=== PATIENT | female | born 1995 | race Two or more races ===

== ENCOUNTER 2017-03-25 21:01 | Emergency (ER) | payer SELFPAY ==
[~2017-03-25] VITALS: Ht 162.6 cm; Wt 140.6 kg
[~2017-03-25 21:01] MED LIST: DOXY100C2 PO; OXYC-323 PO
[2017-03-25 21:37] VITALS: BP 158/74
[2017-03-25] MEDS ORDERED: HYDR-971 PO (23:50)
[2017-03-25] MEDS ORDERED: IBUP-1060 PO (23:50)
--- NOTE | 2017-03-25 23:50 | PHYS DOC ---
Past Medical History Past Medical History: Asthma, Migraines, Ovarian Cyst Past Surgical History: Appendectomy, Oophorectomy, Tonsillectomy Additional Past Surgical Histo: ovarian cyst Alcohol Use: Occasionally Drug Use: None Adult General Chief Complaint Chief Complaint: PELVIC PAIN HPI HPI Patient is a 21 year old female complaining of right-sided pelvic pain which she's had for several hours today. 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 She has had it this bad before but it's been a while. The last time she had pain this bad before, one and half years ago, she had a ruptured ovarian cyst and she had to have her left ovary removed. LMP 2 weeks ago. Before that it is been 6 or 8 months. She does not have regular periods. Patient does not have a [facility] doctor. She denies recent vaginal discharge or bleeding. Review of Systems Review of Systems Constitutional: Denies fever or chills [] GI: Denies abdominal pain, nausea, vomiting, bloody stools or diarrhea [] : Denies dysuria or hematuria [] Musculoskeletal: Denies back pain or joint pain [] Allergies Allergies Allergies Coded Allergies Type Severity Reaction Last Updated Verified No Known Drug Allergies 08/05/15 No Physical Exam Physical Exam Constitutional: Well developed, well nourished, morbidly obese, no acute distress, non-toxic appearance. [] HENT: Normocephalic, atraumatic, bilateral external ears normal, nose normal. [] Eyes: conjunctiva normal, no discharge. [] Neck: Normal range of motion, no stridor. [] Abdomen: Obese, nondistended, abdomen is nontender to palpation except for in the very low right abdomen near the right inguinal crease, no masses, no pulsatile masses. Pelvic exam: External genitalia normal. Vaginal exam normal. Cervix normal in appearance, no cervicitis. Bimanual exam: No cervical motion tenderness. Uterus not enlarged or tender. No left adnexal tenderness or masses. Right adnexa moderately tender to palpation, no mass palpable. Skin: Warm, dry, no erythema, no rash. [] Extremities: No tenderness, no cyanosis, no clubbing, ROM intact, no edema. [] Neurologic: Alert and oriented X 3, normal motor function, normal sensory function, no focal deficits noted. [] Current Patient Data Vital Signs Vital Signs Date Time Temp Pulse Resp B/P (MAP) Pulse Ox O2 Delivery O2 Flow Rate FiO2 03/25/17 21:37 98.2 85 16 158/74 (102) 96 Room Air 98.2 Lab Values Laboratory Tests Test 03/25/17 20:23 POC Urine HCG, Qualitative Hcg negative (Negative) EKG EKG [] Radiology/Procedures Radiology/Procedures [] Course & Med Decision Making Course & Med Decision Making Pertinent Labs and Imaging studies reviewed. (See chart for details) 21-year-old female with a history of left to for ectomy secondary to ruptured cyst in the past, presents with severe pain in the right adnexa which reminds her of that same pain. Urine test is negative. Pelvic exam is unremarkable except for some pain and tenderness in the right adnexa. I discussed with the patient we will get a pelvic ultrasound to evaluate her right ovary and she is agreeable to that plan. Patient was offered pain medication prior to ultrasound but she declined. Pelvic ultrasound done, does show blood flow to the right ovary, she does have a moderately sized right ovarian cyst but she does have good blood flow and no free fluid. Patient was reassured, prescription for ibuprofen 800 mg and [place] for a day or 2 if needed, referral to [facility] given. [] Dragon Disclaimer Dragon Disclaimer This electronic medical record was generated, in whole or in part, using a voice recognition dictation system. Departure Departure Impression: Primary Impression: Pelvic pain Disposition: 01 HOME, SELF-CARE Condition: STABLE Referrals: NO PCP (PCP) ELIANA VIRAMONTES Jr, MD Patient Instructions: Ovarian Cyst, [id number] Additional Instructions: Today in the ER, the ultrasound did show a cyst on your right ovary that does not appear to be causing any problems at this time. There is good blood flow to your right ovary. We are not sure what is causing your pain, ovarian cyst can be painful, but there is no evidence of a serious cause for the pain tonight. Take ibuprofen 800 mg every 8 hours around the clock for the next 2 or 3 days for pain. If your pain is not improving, make an appointment with [facility] doctor for more evaluation. [place], hydrocodone, for more severe pain area and you may take this along with my it is safe to combine. Do not take while driving, it may be sedating. Scripts Hydrocodone/Apap 5-325 (NORCO 5-325 TABLET) 1 Each Tablet 1-2 TAB PO Q4-6HRS, #12 TAB Prov: KEILA LAUREN MD 03/25/17 Ibuprofen (IBUPROFEN) 800 Mg Tablet 800 MG PO PRN Q6HRS Y for INFLAMMATION for 7 Days, #20 TAB Prov: KEILA LAUREN MD 03/25/17 KEILA LAUREN MD March 25, 2017 23:50
--- NOTE | 2017-03-26 00:03 | RAD ---
PROCEDURE Complete pelvic ultrasound. HISTORY Right pelvic pain. TECHNIQUE Real-time ultrasound imaging of the pelvis using transabdominal transvaginal windows performed here. COMPARISON Pelvic ultrasound August 04, 2015. FINDINGS The left ovary surgically absent. Right ovary is only visualized transvaginally. Uterus measures 6.3 x 4 x 3.4 cm. No focal abnormality. Incidental nabothian cysts. The endometrial stripe is normal measuring 9 millimeters. The right ovary measures 3.2 x 2.2 x 2.1 cm. Normal blood flow. There is a right ovary functional cyst measuring up to 2.3 cm. Right ovary is not well seen. No pelvic free fluid is identified. IMPRESSION 1. Normal blood flow in the right ovary. Small right ovary functional cyst. 2. Left ovary surgically absent. 3. Nabothian cysts. Electronically signed by: Jefferson Leary MD (March 26, 2017 00:00:24)
== END 2017-03-25 23:58 | disposition home or self-care (01) ==
LOC: ER 21:32
DX: R10.2 Pelvic and perineal pain (principal); J45.909 Unspecified asthma, uncomplicated; G43.909 Migraine, unspecified, not intractable, without status migrainosus; Z90.49 Acquired absence of other specified parts of digestive tract; Z90.722 Acquired absence of ovaries, bilateral
CPT/HCPCS: 76830; 76856; 81025; 84703; 99284-25

== ENCOUNTER 2019-11-22 03:05 | Emergency (ER) | payer OTHER ==
[~2019-11-22] VITALS: Ht 162.6 cm; Wt 117.9 kg
[~2019-11-22 03:05] MED LIST changes: +HYDR-3164 PO; +IBUP-1060 PO; -OXYC-323 PO; +OXYC1TAB15 PO
[2019-11-22 03:25] VITALS: BP 144/81
[2019-11-22 05:00] LABS: U PREG PATIENT POSITIVE (NEG)
--- NOTE | 2019-11-22 05:13 | PHYS DOC ---
Past Medical History Past Medical History: Asthma Past Surgical History: Appendectomy, Tonsillectomy Additional Past Surgical Histo: ovarian cyst Alcohol Use: Occasionally Drug Use: None Adult General Chief Complaint Chief Complaint: UPPER EXTREMITY PAIN HPI HPI Patient is a 24 year old female who came here from work for evaluation of left arm pain for the last 3 days. Patient denies any chest pain, no trouble breathing. She denies any injury. 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 Described the pain at aching, worse with muscle movement. She denies any history of high blood pressure, no history of diabetes, no history of blood clot disorder. Review of Systems Review of Systems Constitutional: Denies fever or chills [] Eyes: Denies change in visual acuity, redness, or eye pain [] HENT: Denies nasal congestion or sore throat [] Respiratory: Denies cough or shortness of breath [] Cardiovascular: No additional information not addressed in HPI [] GI: Denies abdominal pain, nausea, vomiting, bloody stools or diarrhea [] : Denies dysuria or hematuria [] Musculoskeletal: Denies back pain or joint pain [] Integument: Denies rash or skin lesions [] Neurologic: Denies headache, focal weakness or sensory changes [] Endocrine: Denies polyuria or polydipsia [] All other systems were reviewed and found to be within normal limits, except as documented in this note. Allergies Allergies Allergies Coded Allergies Type Severity Reaction Last Updated Verified No Known Drug Allergies 08/05/15 No Physical Exam Physical Exam Constitutional: Well developed, well nourished, no acute distress, non-toxic appearance. [] HENT: Normocephalic, atraumatic, bilateral external ears normal, oropharynx moist, no oral exudates, nose normal. [] Eyes: PERRLA, EOMI, conjunctiva normal, no discharge. [] Neck: Normal range of motion, no tenderness, supple, no stridor. [] Cardiovascular:Heart rate regular rhythm, no murmur [] Lungs & Thorax: Bilateral breath sounds clear to auscultation [] Abdomen: Bowel sounds normal, soft, no tenderness, no masses, no pulsatile masses. [] Skin: Warm, dry, no erythema, no rash. [] Back: No tenderness, no CVA tenderness. [] Extremities: No tenderness, no cyanosis, no clubbing, ROM intact, no edema. [] Neurologic: Alert and oriented X 3, normal motor function, normal sensory function, no focal deficits noted. [] Psychologic: Affect normal, judgement normal, mood normal. [] Current Patient Data Vital Signs Vital Signs Date Time Temp Pulse Resp B/P (MAP) Pulse Ox O2 Delivery O2 Flow Rate FiO2 11/22/19 03:25 98.6 75 16 144/81 (102) 100 Room Air 98.6 Lab Values Laboratory Tests Test 11/22/19 04:39 11/22/19 04:45 POC Urine HCG, Qualitative Hcg positive (Negative) Urine Test Positive (NEG) EKG EKG ekg was done, showed normal sinus rhythm, no STEMI.[] Radiology/Procedures Radiology/Procedures [] Course & Med Decision Making Course & Med Decision Making Pertinent Labs and Imaging studies reviewed. (See chart for details) Patient was found to be incidentally. No pelvic pain, no nausea or vomiting, no abdominal pain, no Vaginal bleeding. She will need to follow up with [facility]. Dragon Disclaimer Dragon Disclaimer This electronic medical record was generated, in whole or in part, using a voice recognition dictation system. Departure Departure Impression: Primary Impression: Arm pain, musculoskeletal Additional Impression: Disposition: HOME, SELF-CARE Condition: STABLE Referrals: NO PCP (PCP) ELIANA VIRAMONTES Jr, MD please call this [facility] Patient Instructions: ABCs of , Musculoskeletal Pain Problem Qualifiers ROSALBA MORENO DO Nov 22, 2019 05:13
--- NOTE | 2019-11-22 13:54 | EKG ---
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
== END 2019-11-22 05:15 | disposition home or self-care (01) ==
LOC: ER 03:05
DX: M79.602 Pain in left arm (principal); Z33.1 Pregnant state, incidental; J45.909 Unspecified asthma, uncomplicated
CPT/HCPCS: 81025; 93005; 99285

== ENCOUNTER → 2019-11-28 | Outpatient (CLI) | payer OTHER ==
[2019-11-22 03:25] VITALS: BP 144/81
[2019-11-28 12:38] LABS: BASO % 0 % (0-3); EOS # 0.1 x10^3/uL (0.0-0.7); EOS % 1 % (0-3); HEMATOCRIT 36.1 % (36.0-47.0); HEMOGLOBIN 11.6 g/dL (12.0-15.5); LYMPH # 1.6 x10^3/uL (1.0-4.8); LYMPH % 17 % (24-48); MEAN CORPUSCULAR HEMOGLOBIN 22 pg (25-35); MEAN CORPUSCULAR HGB CONC 32 g/dL (31-37); MEAN CORPUSCULAR VOLUME 67 fL (79-100); MONO # 0.6 x10^3/uL (0.0-1.1); MONO % 6 % (0-9); NEUT # 7.4 x10^3/uL (1.8-7.7); NEUT % 76 % (31-73); PLATELET COUNT 341 x10^3/uL (140-400); RED BLOOD COUNT 5.36 x10^6/uL (3.50-5.40); RED CELL DISTRIBUTION WIDTH 17.7 % (11.5-14.5); WHITE BLOOD COUNT 9.7 x10^3/uL (4.0-11.0)
[2019-11-28 13:03] LABS: ANISOCYTOSIS SLIGHT; MICROCYTOSIS PRESENT; PLT ESTIMATE ADEQUATE (ADEQUATE)
== END | disposition home or self-care (01) ==
LOC: LAB 11:53
PROVIDERS: ATTEND Obstetrics & Gynecology
DX: Z32.01 Encounter for pregnancy test, result positive (principal)
CPT/HCPCS: 36415; 81220; 85025; 86592; 86703; 86762; 86850; 86900; 86901; 87340

== ENCOUNTER 2019-12-26 00:01 | Emergency (ER) | payer OTHER ==
[~2019-12-26] VITALS: Ht 162.6 cm; Wt 117.0 kg
--- NOTE | 2019-12-26 00:23 | PHYS DOC ---
Past Medical History Past Medical History: Asthma Past Surgical History: Appendectomy, Tonsillectomy Additional Past Surgical Histo: ovarian cyst Smoking Status: Never Smoker Alcohol Use: Occasionally Drug Use: None Attending Signature I have participated in the care of this patient and I have reviewed and agree with all pertinent clinical information above including history, exam, and recommendations. Adult General Chief Complaint Chief Complaint: ABDOMINAL PAIN IN HPI HPI 24 yo female presents emergency Department with complaints of groin pain. Patient describes pain over the last couple days worsening today. She states she works at [employer] does some heavy lifting. She describes the pain as a stabbing sensation. Better with rest usually however was persistent today. She denies any vaginal discharge or bleeding. She is approximately 11 weeks. She follows with Dr. Camilo. She was concerned and wanted to make sure there was nothing wrong with the baby. Patient has tried no over the counter medications. Review of Systems Review of Systems Constitutional: Denies fever or chills [] Respiratory: Denies cough or shortness of breath [] Cardiovascular: No additional information not addressed in HPI [] GI: Denies abdominal pain, nausea, vomiting, bloody stools or diarrhea, right groin pain [] : Denies dysuria or hematuria [] Musculoskeletal: Denies back pain or joint pain [] Integument: Denies rash or skin lesions [] Neurologic: Denies headache, focal weakness or sensory changes [] All other systems were reviewed and found to be within normal limits, except as documented in this note. Current Medications Current Medications Current Medications Medications (Trade) Dose Ordered Sig/[facility] Start Time Stop Time Status Last Admin Dose Admin Cyclobenzaprine HCl (Flexeril) 10 mg 1X ONCE 12/26/19 01:30 12/26/19 01:31 DC 12/26/19 01:26 10 MG Allergies Allergies Allergies Coded Allergies Type Severity Reaction Last Updated Verified No Known Drug Allergies 08/05/15 No Physical Exam Physical Exam Constitutional: Well developed, well nourished, no acute distress, non-toxic appearance. [] Cardiovascular:Heart rate regular rhythm, no murmur [] Lungs & Thorax: Bilateral breath sounds clear to auscultation [] Abdomen: Bowel sounds normal, soft, no tenderness, no masses, no pulsatile masses. [] Skin: Warm, dry, no erythema, no rash. [] Back: No tenderness, no CVA tenderness. [] Extremities: No tenderness,no edema. [] Neurologic: Alert and oriented X 3, no focal deficits noted. [] Psychologic: Affect normal, judgement normal, mood normal. [] Current Patient Data Vital Signs Vital Signs Date Time Temp Pulse Resp B/P (MAP) Pulse Ox O2 Delivery O2 Flow Rate FiO2 12/26/19 01:33 70 20 127/66 (86) 100 Room Air 12/26/19 00:08 98.9 98.9 Lab Values Laboratory Tests Test 12/26/19 00:10 Urine Collection Type Unknown Urine Color Yellow Urine Clarity Clear Urine pH 6.0 Urine Specific [place] >=1.030 Urine Protein 30 mg/dL (NEG-TRACE) Urine Glucose (UA) Negative mg/dL (NEG) Urine Ketones (Stick) Negative mg/dL (NEG) Urine Blood Negative (NEG) Urine Nitrite Negative (NEG) Urine Bilirubin Negative (NEG) Urine Urobilinogen Dipstick 0.2 mg/dL (0.2 mg/dL) Urine Leukocyte Esterase Trace (NEG) Urine RBC Rare /HPF (0-2) Urine WBC 11-20 /HPF (0-4) Urine Squamous Epithelial Cells Many /LPF Urine Bacteria Moderate /HPF (0-FEW) Urine Mucus Marked /LPF EKG EKG [] Radiology/Procedures Radiology/Procedures [] Course & Med Decision Making Course & Med Decision Making Pertinent Labs and Imaging studies reviewed. (See chart for details) []24 yo female presents emergency Department with complaints of groin pain. Patient describes pain over the last couple days worsening today. She states she works at [employer] does some heavy lifting. She describes the pain as a stabbing sensation. Better with rest usually however was persistent today. She denies any vaginal discharge or bleeding. She is approximately 11 weeks. She follows with Dr. Camilo. She was concerned and wanted to make sure there was nothing wrong with the baby. Patient has tried no over the counter medications. UAD without UTI US reviewed - 11week , + FHTs Tylenol and flexeril recommended Rx provided for flexeril category B in Recommend follow up with PCP/primary OB in 3 - 5 days [place] Disclaimer Dragon Disclaimer This electronic medical record was generated, in whole or in part, using a voice recognition dictation system. Departure Departure Impression: Primary Impression: Groin pain Disposition: 01 HOME, SELF-CARE Condition: STABLE Referrals: NO PCP (PCP) Patient Instructions: Groin Strain Additional Instructions: Recommend follow up with PCP 3 - 5 days Return to the ER with worsening symptoms, intractable pain, fever, altered mental status Tylenol as needed for pain US with + FHTs Urine without evidence of acute infection on exam Flexeril rx provided for muscle spasm Scripts Cyclobenzaprine Hcl (CYCLOBENZAPRINE HCL) 10 Mg Tablet 1 TAB PO TID PRN for MUSCLE SPASMS, #21 TAB Prov: JERRICA STONE MD 12/26/19 Problem Qualifiers Primary Impression: Groin pain Laterality: right Qualified Codes: R10.31 - Right lower quadrant pain JERRICA STONE MD Dec 26, 2019 00:23
[2019-12-26 00:25] LABS: BILIRUBIN,URINE NEGATIVE (NEG); CLARITY,URINE CLEAR; COLOR,URINE YELLOW; NITRITE,URINE NEGATIVE (NEG); PROTEIN,URINE 30 mg/dL (NEG-TRACE); UROBILINOGEN,URINE 0.2 mg/dL (0.2 mg/dL)
[2019-12-26 00:31] LABS: SQUAMOUS EPITHELIAL CELL,UR MANY /LPF
[2019-12-26 00:32] LABS: BACTERIA,URINE MODERATE /HPF (0-FEW); RBC,URINE RARE /HPF (0-2)
[2019-12-26] MEDS ORDERED: CYCL10TA2 PO (01:29)
[2019-12-26] MEDS ORDERED: CYCLOBENZAPRINE 10 MG TABLET. PO ONE (01:30)
[2019-12-26 01:33] VITALS: BP 127/66
--- NOTE | 2019-12-26 01:55 | RAD ---
OB ultrasound less than 14 weeks HISTORY: Abdominal pain and groin pain Sonographic sedation appearance was performed by transabdominal technique and multiple static images were obtained. There is a gestational sac in the uterus. There is a pole. The crown-rump length of 4.19 cm corresponds to 11 weeks 0 day gestational age estimated date confinement July 08, 2020. The LMP of 10/11/2019 corresponds to 10 week 6 day gestational age. The heartbeat is confirmed at 158 beats per minute. The right ovary appears normal. Left ovary is not seen consistent patient's history of prior removal. There is a small bleed inferior to the gestational sac that measures 1.5 x 2.7 x 0.5 cm. The technologist noted that the uterus moved multiple times during the examination. IMPRESSION: 1. Single live intrauterine at 10 weeks 6 days gestational age by LMP has appropriate size by ultrasound. 2. Small periimplantational bleed. 3. A short-term follow-up ultrasound could be performed if clinically indicated otherwise a structural survey would be performed at 18-21 weeks gestational age. Electronically signed by: Efrain Morgan III, MD (12/26/2019 1:52 AM) [id number]
[2019-12-26] MEDS ORDERED: METR500T PO (22:48)
== END 2019-12-26 01:55 | disposition home or self-care (01) ==
LOC: ER 00:01
DX: R10.31 Right lower quadrant pain (principal); J45.909 Unspecified asthma, uncomplicated; Z90.89 Acquired absence of other organs
CPT/HCPCS: 76801; 81001; 87086; 99285-25

== ENCOUNTER 2019-12-26 17:55 | Emergency (ER) | payer OTHER ==
[~2019-12-26] VITALS: Ht 162.6 cm; Wt 118.0 kg
[~2019-12-26 17:55] MED LIST changes: +CYCL10TA2 PO
[2019-12-26 19:55] LABS: BILIRUBIN,URINE NEGATIVE (NEG); CLARITY,URINE CLOUDY; COLOR,URINE YELLOW; NITRITE,URINE NEGATIVE (NEG); PH,URINE 7.5; PROTEIN,URINE NEGATIVE (NEG-TRACE); UROBILINOGEN,URINE 0.2 mg/dL (0.2 mg/dL)
[2019-12-26 20:01] LABS: BACTERIA,URINE FEW /HPF (0-FEW); BARBITURATES NEG (NEG); BENZODIAZEPINES NEG (NEG); CANNABINOIDS NEG (NEG); COCAINE NEG (NEG); METHADONE NEG (NEG); OPIATES NEG (NEG); PHENCYCLIDINE NEG (NEG); RBC,URINE OCC /HPF (0-2); SQUAMOUS EPITHELIAL CELL,UR MOD /LPF
[2019-12-26 20:02] LABS: AMPHETAMINE/METHAMPHETAMINE NEG (NEG)
[2019-12-26 20:19] LABS: BASO # 0.1 x10^3/uL (0.0-0.2); BASO % 1 % (0-3); EOS # 0.1 x10^3/uL (0.0-0.7); EOS % 1 % (0-3); HEMATOCRIT 35.3 % (36.0-47.0); HEMOGLOBIN 11.4 g/dL (12.0-15.5); LYMPH # 1.8 x10^3/uL (1.0-4.8); LYMPH % 18 % (24-48); MEAN CORPUSCULAR HEMOGLOBIN 22 pg (25-35); MEAN CORPUSCULAR HGB CONC 32 g/dL (31-37); MEAN CORPUSCULAR VOLUME 69 fL (79-100); MONO # 0.5 x10^3/uL (0.0-1.1); MONO % 5 % (0-9); NEUT # 7.2 x10^3/uL (1.8-7.7); NEUT % 75 % (31-73); PLATELET COUNT 281 x10^3/uL (140-400); RED BLOOD COUNT 5.13 x10^6/uL (3.50-5.40); RED CELL DISTRIBUTION WIDTH 18.5 % (11.5-14.5); WHITE BLOOD COUNT 9.6 x10^3/uL (4.0-11.0)
[2019-12-26 20:29] LABS: CALCIUM 8.9 mg/dL (8.5-10.1); CREATININE 0.5 mg/dL (0.6-1.0); GFR 149.1; POTASSIUM 4.1 mmol/L (3.5-5.1)
[2019-12-26 20:35] LABS: ALBUMIN 2.9 g/dL (3.4-5.0); ALBUMIN/GLOBULIN RATIO 0.8 (1.0-1.7); TOTAL BILIRUBIN 0.2 mg/dL (0.2-1.0); TOTAL PROTEIN 6.7 g/dL (6.4-8.2)
[2019-12-26 20:42] LABS: HYPOCHROMIA MOD; MICROCYTOSIS MARKED; PLT ESTIMATE ADEQUATE (ADEQUATE)
[2019-12-26 20:43] LABS: ANISOCYTOSIS SLIGHT
--- NOTE | 2019-12-26 21:01 | RAD ---
Exam: Ultrasound OB less than 14 weeks Indication: Vaginal bleeding Technique: Real-time grayscale and color Doppler images of the pelvis were obtained by the department technology adoption manager. Comparisons: Ultrasound same day FINDINGS: Uterus measures 15.5 x 8.2 x 7.5 cm. Within the endometrium there is a gestational sac with pole measuring 4.2 cm corresponding to 11 weeks 0 days Right ovary measures 3.3 x 3.6 x 2.1 cm. Within the right ovary there is a cyst measuring up to 2.4 cm. Left ovary is not visualized. No free fluid is identified. IMPRESSION: 1. Stable single live intrauterine gestation measuring 11 weeks 0 days by current ultrasound. 2. Dedicated survey is recommended at 18-20 weeks gestation. Electronically signed by: Rebekah Sarmiento MD (12/26/2019 8:58 PM) [id number]
[2019-12-26 22:31] VITALS: BP 128/77
[2019-12-26] MEDS ORDERED: METR500T PO (22:48)
--- NOTE | 2019-12-26 22:49 | PHYS DOC ---
Past Medical History Past Medical History: Asthma (CHAD EDWARDS APRN) Past Surgical History: Appendectomy, Oophorectomy, Tonsillectomy Additional Past Surgical Histo: ovarian cyst, left ovary moved (CHAD EDWARDS APRN) Smoking Status: Never Smoker Alcohol Use: None Drug Use: None (CHAD EDWARDS APRN) Attending Signature I have participated in the care of this patient and I have reviewed and agree w ith all pertinent clinical information above including history, exam, and recommendations. (JERRICA STONE MD) Adult General Chief Complaint Chief Complaint: ABDOMINAL PAIN IN HPI HPI Patient is a 24 year old female 1 para 0 currently 11 weeks presenting to the ED today complaining of 9 out of 10 low abdominal cramping type pain that began this morning and bleeding that began at 5:30 PM. Patient denies any urgency, frequency, dysuria. Denies any concerns for STDs. She report s she's been following up with her INSTRU[employer]CT SURGICAL TECHNICIAN for her . She reports bleeding only occurs when she wiped herself. Patient was seen in the ED early this morning for abdominal pain, no vaginal bleeding at that time. (CHAD EDWARDS APRN) Review of Systems Review of Systems Constitutional: Denies fever or chills [] Eyes: Denies change in visual acuity, redness, or eye pain [] HENT: Denies nasal congestion or sore throat [] Respiratory: Denies cough or shortness of breath [] Cardiovascular: No additional information not addressed in HPI [] GI: Reports lower abdominal pain with vaginal bleeding, denies nausea, vomiting, bloody stools or diarrhea [] : Denies dysuria or hematuria [] Musculoskeletal: Denies back pain or joint pain [] Integument: Denies rash or skin lesions [] Neurologic: Denies headache, focal weakness or sensory changes [] All other systems were reviewed and found to be within normal limits, except as documented in this note. (CHAD EDWARDS APRN) Allergies Allergies Allergies Coded Allergies Type Severity Reaction Last Updated Verified No Known Drug Allergies 08/05/15 No (JERRICA STONE MD) Physical Exam Physical Exam Constitutional: Well developed, well nourished, no acute distress, non-toxic appearance. [] HENT: Normocephalic, atraumatic, bilateral external ears normal, oropharynx moist, no oral exudates, nose normal. [] Eyes: PERRLA, EOMI, conjunctiva normal, no discharge. [] Neck: Normal range of motion, no tenderness, supple, no stridor. [] Cardiovascular:Heart rate regular rhythm, no murmur [] Lungs & Thorax: Bilateral breath sounds clear to auscultation [] Abdomen: Bowel sounds normal, soft, no tenderness, no masses, no pulsatile masses. [] Pelvic exam External pelvic appears normal, cervix is visualized, no CMT, no adnexal tenderness, trace amount of bright red blood in the vaginal vault. Skin: Warm, dry, no erythema, no rash. [] Back: No tenderness, no CVA tenderness. [] Extremities: No tenderness, no cyanosis, no clubbing, ROM intact, no edema. [] Neurologic: Alert and oriented X 3, normal motor function, normal sensory function, no focal deficits noted. [] Psychologic: Affect normal, judgement normal, mood normal. [] (CHAD EDWARDS APRN) Current Patient Data Vital Signs Vital Signs Date Time Temp Pulse Resp B/P (MAP) Pulse Ox O2 Delivery O2 Flow Rate FiO2 12/26/19 22:31 76 20 128/77 (94) 100 Room Air 12/26/19 19:01 98.0 98.0 (JERRICA STONE MD) Lab Values Laboratory Tests Test 12/26/19 19:25 12/26/19 20:06 Urine Collection Type Unknown Urine Color Yellow Urine Clarity Cloudy Urine pH 7.5 Urine Specific [place] 1.015 Urine Protein Negative mg/dL (NEG-TRACE) Urine Glucose (UA) Negative mg/dL (NEG) Urine Ketones (Stick) Negative mg/dL (NEG) Urine Blood Large (NEG) Urine Nitrite Negative (NEG) Urine Bilirubin Negative (NEG) Urine Urobilinogen Dipstick 0.2 mg/dL (0.2 mg/dL) Urine Leukocyte Esterase Trace (NEG) Urine RBC Occ /HPF (0-2) Urine WBC 1-4 /HPF (0-4) Urine Squamous Epithelial Cells Mod /LPF Urine Bacteria Few /HPF (0-FEW) Urine Mucus Slight /LPF Urine Opiates Screen Neg (NEG) Urine Methadone Screen Neg (NEG) Urine Barbiturates Neg (NEG) Urine Phencyclidine Screen Neg (NEG) Urine Amphetamine/Methamphetamine Neg (NEG) Urine Benzodiazepines Screen Neg (NEG) Urine Cocaine Screen Neg (NEG) Urine Cannabinoids Screen Neg (NEG) Urine Ethyl Alcohol Neg (NEG) White Blood Count 9.6 x10^3/uL (4.0-11.0) Red Blood Count 5.13 x10^6/uL (3.50-5.40) Hemoglobin 11.4 g/dL (12.0-15.5) L Hematocrit 35.3 % (36.0-47.0) L Mean Corpuscular Volume 69 fL (79-100) L Mean Corpuscular Hemoglobin 22 pg (25-35) L Mean Corpuscular Hemoglobin Concent 32 g/dL (31-37) Red Cell Distribution Width 18.5 % (11.5-14.5) H Platelet Count 281 x10^3/uL (140-400) Neutrophils (%) (Auto) 75 % (31-73) H Lymphocytes (%) (Auto) 18 % (24-48) L Monocytes (%) (Auto) 5 % (0-9) Eosinophils (%) (Auto) 1 % (0-3) Basophils (%) (Auto) 1 % (0-3) Neutrophils # (Auto) 7.2 x10^3/uL (1.8-7.7) Lymphocytes # (Auto) 1.8 x10^3/uL (1.0-4.8) Monocytes # (Auto) 0.5 x10^3/uL (0.0-1.1) Eosinophils # (Auto) 0.1 x10^3/uL (0.0-0.7) Basophils # (Auto) 0.1 x10^3/uL (0.0-0.2) Platelet Estimate Adequate (ADEQUATE) Hypochromasia Mod Anisocytosis Slight Microcytosis Marked Maternal Serum HCG Beta Subunit 745415 mIU/mL (0-5) H Sodium Level 139 mmol/L (136-145) Potassium Level 4.1 mmol/L (3.5-5.1) Chloride Level 104 mmol/L (98-107) Carbon Dioxide Level 25 mmol/L (21-32) Anion Gap 10 (6-14) Blood Urea Nitrogen 11 mg/dL (7-20) Creatinine 0.5 mg/dL (0.6-1.0) L Estimated GFR (Cockcroft-Gault) 149.1 BUN/Creatinine Ratio 22 (6-20) H Glucose Level 90 mg/dL (70-99) Calcium Level 8.9 mg/dL (8.5-10.1) Total Bilirubin 0.2 mg/dL (0.2-1.0) Aspartate Amino Transferase (AST) 14 U/L (15-37) L Alanine Aminotransferase (ALT) 14 U/L (14-59) Alkaline Phosphatase 67 U/L (46-116) Total Protein 6.7 g/dL (6.4-8.2) Albumin 2.9 g/dL (3.4-5.0) L Albumin/Globulin Ratio 0.8 (1.0-1.7) L Ethyl Alcohol Level < 10 mg/dL (0-10) Laboratory Tests 12/26/19 20:06 Laboratory Tests 12/26/19 20:06 Microbiology 12/26/19 Wet Prep - Final, Complete (JERRICA STONE MD) EKG EKG [] (CHAD EDWARDS APRN) Radiology/Procedures Radiology/Procedures []REASON: vag bleeding in PROCEDURE: OB < 14 WKS Exam: Ultrasound OB less than 14 weeks Indication: Vaginal bleeding Technique: Real-time grayscale and color Doppler images of the pelvis were obtained by the department underliner. Comparisons: Ultrasound same day FINDINGS: Uterus measures 15.5 x 8.2 x 7.5 cm. Within the endometrium there is a gestational sac with pole measuring 4.2 cm corresponding to 11 weeks 0 days Right ovary measures 3.3 x 3.6 x 2.1 cm. Within the right ovary there is a cyst measuring up to 2.4 cm. Left ovary is not visualized. No free fluid is identified. IMPRESSION: 1. Stable single live intrauterine gestation measuring 11 weeks 0 days by current ultrasound. 2. Dedicated survey is recommended at 18-20 weeks gestation. Electronically signed by: Landon Wood MD (12/26/2019 8:58 PM) [id number] DICTATED and SIGNED BY: LANDON WOOD MD DATE: 12/26/192057 (CHAD EDWARDS APRN) Course & Med Decision Making Course & Med Decision Making Pertinent Labs and Imaging studies reviewed. (See chart for details) This is a 24-year-old female patient presenting to the ED today complaining of vaginal bleeding that began this evening as well as abdominal pain that began early this morning. Patient had trace amount of bright red blood in the vaginal vault on physical exam. Beta hCG 107,452. Urinalysis is negative for infection, wet prep noted for BV, discharge and Flagyl. CMP-no acute findings. Blood group A positive OB ultrasound noted for stable IUP 11 weeks 0 days. D/c to home, pelvic rest recommended. f/u with PcP next week (CHAD EDWARDS APRN) Dragon Disclaimer Dragon Disclaimer This electronic medical record was generated, in whole or in part, using a voice recognition dictation system. (CHAD EDWARDS APRN) Departure Departure Impression: Primary Impression: Threatened miscarriage in early Additional Impression: Bacterial vaginosis in Disposition: HOME, SELF-CARE Condition: STABLE Referrals: NO PCP (PCP) Follow up with the INSTRUCTOR [employer]JUNCT SURGICAL TECHNICIAN next week Patient Instructions: Bacterial Vaginosis, Threatened Miscarriage, [id number] Additional Instructions: You were evaluated in the emergency room for vaginal bleeding and abdominal pain in . You are 11 weeks 0 days . Maintain bedrest, no strenuous activities, no heavy lifting, no sexual activity until the bleeding has stopped and you have been seen by the INSTRUCTOR [employer]CT SURGICAL TECHNICIAN. Scripts Metronidazole (FLAGYL) 500 Mg Tablet 1 TAB PO BID, #14 TAB Prov: CHAD EDWARDS APRN 12/26/19 Problem Qualifiers CHAD EDWARDS APRN Dec 26, 2019 22:49 JERRICA STONE MD Dec 26, 2019 23:12
[2019-12-29 19:09] LABS: GC PROBE Negative (Negative)
== END 2019-12-26 22:54 | disposition home or self-care (01) ==
LOC: ER 17:55
DX: O20.0 Threatened abortion (principal); O23.591 Infection of other part of genital tract in pregnancy, first trimester; B96.89 Other specified bacterial agents as the cause of diseases classified elsewhere; R10.30 Lower abdominal pain, unspecified; J45.909 Unspecified asthma, uncomplicated; Z90.89 Acquired absence of other organs; Z98.890 Other specified postprocedural states; Z3A.11 11 weeks gestation of pregnancy
CPT/HCPCS: 36415; 76801; 80053; 80307; 81001; 84702; 85025; 87086; 87491; 87591; 99285; G0480; Q0111

== ENCOUNTER 2020-02-29 13:04 | Emergency (ER) | payer SELFPAY ==
[~2020-02-29] VITALS: Ht 162.6 cm; Wt 125.0 kg
[~2020-02-29 13:04] MED LIST changes: +METR500T PO
[2020-02-29 13:59] LABS: BILIRUBIN,URINE NEGATIVE (NEG); CLARITY,URINE CLEAR; COLOR,URINE YELLOW; NITRITE,URINE NEGATIVE (NEG); PH,URINE 7.5 (<5.0-8.0); PROTEIN,URINE NEGATIVE (NEG-TRACE); UROBILINOGEN,URINE 0.2 mg/dL (0.2 mg/dL)
[2020-02-29 14:02] LABS: BASO # 0.1 x10^3/uL (0.0-0.2); BASO % 1 % (0-3); EOS # 0.1 x10^3/uL (0.0-0.7); EOS % 1 % (0-3); HEMATOCRIT 37.1 % (36.0-47.0); HEMOGLOBIN 12.1 g/dL (12.0-15.5); LYMPH # 1.7 x10^3/uL (1.0-4.8); LYMPH % 14 % (24-48); MEAN CORPUSCULAR HEMOGLOBIN 24 pg (25-35); MEAN CORPUSCULAR HGB CONC 33 g/dL (31-37); MEAN CORPUSCULAR VOLUME 73 fL (79-100); MONO # 0.7 x10^3/uL (0.0-1.1); MONO % 5 % (0-9); NEUT % 80 % (31-73); PLATELET COUNT 276 x10^3/uL (140-400); RED BLOOD COUNT 5.06 x10^6/uL (3.50-5.40); RED CELL DISTRIBUTION WIDTH 18.4 % (11.5-14.5); WHITE BLOOD COUNT 12.5 x10^3/uL (4.0-11.0)
[2020-02-29 14:10] LABS: CALCIUM 9.3 mg/dL (8.5-10.1); CREATININE 0.5 mg/dL (0.6-1.0); GFR 149.1; POTASSIUM 3.9 mmol/L (3.5-5.1)
--- NOTE | 2020-02-29 14:11 | NUR ---
Doppler heart tone 148-152 per Lulu Gusman R.N.
[2020-02-29 14:25] LABS: BACTERIA,URINE MODERATE /HPF (0-FEW); RBC,URINE OCC /HPF (0-2); SQUAMOUS EPITHELIAL CELL,UR MOD /LPF; WBC,URINE OCC /HPF (0-4)
--- NOTE | 2020-02-29 15:03 | RAD ---
Limited OB ultrasound greater than 14 weeks 02/29/2020 Clinical History: Second trimester with lower abdominal pain. Technique: A real-time ultrasound examination of the gravid uterus was performed. Multiple images were obtained. Findings: Comparison study is dated 12/26/2019. There is a single living IUP. The fetus is in acephalic position. cardiac and somatic activity is seen. The heart rate is 144 beats per minutes. The maternal cervix is closed. The placenta is in posterior. No abnormality is seen. The amniotic fluid volume is within normal limits. Neither maternal ovary is visualized. The following measurements were obtained: BPD 4.72cm 20 weeks two days HC 17.75 cm 20weeks two days AC 15.21 cm 20weeks 3 days FL 3.47 cm 21 weeks 0 days The estimated gestational age by ultrasound is 20 weeks 4 days plus or minus a standard deviation of 10 days. The estimated date of delivery by ultrasound is 07/14/2020. Since the previous examination there has been appropriate interval growth. Detailed evaluation of anatomy was not performed. Impression: Single living IUP with an estimated gestational age by ultrasound of 20 weeks4 days +/- a standard deviation of 10 days. Since the previous examination has been appropriate interval growth. Electronically signed by: Gary Escobar MD (02/29/2020 2:59 PM) [id number]
--- NOTE | 2020-02-29 15:23 | PHYS DOC ---
Past Medical History Past Medical History: Asthma Past Surgical History: Appendectomy, Oophorectomy, Tonsillectomy Additional Past Surgical Histo: ovarian cyst, left ovary moved Smoking Status: Never Smoker Alcohol Use: None Drug Use: None General Adult EDM: Chief Complaint: ABDOMINAL PAIN IN HPI: HPI: Patient is a 24 year old female who presents to the emergency department with complaints of intermittent lower abdominal pain that has worsened over the last few days. Patient states she is currently , this is her first . She reports that her last menstrual cycle was at the end of August in 2018 and that her estimated due date is July 172019. Patient denies any fever, cough, shortness of breath, nausea, vomiting, diarrhea, or abdominal pain at this time. She denies any dysuria, hematuria, irregular vaginal discharge, vaginal bleeding, or low back pain. Patient states she has had some increased urinary frequency but this is been throughout her . She states that when she has the abdominal pain she feels nauseated but does not vomit. She currently denies any complaints or pain at this time. Review of Systems: Review of Systems: Constitutional: Denies fever or chills. [] HENT: Denies nasal congestion or sore throat. [] Respiratory: Denies cough or shortness of breath. [] Cardiovascular: Denies chest pain or edema. [] GI: Denies abdominal pain, nausea, vomiting, or diarrhea; see HPI [] : Denies dysuria; see HPI[] Musculoskeletal: Denies back pain or joint pain. [] Integument: Denies rash. [] Neurologic: Denies headache, focal weakness or sensory changes. [] Endocrine: Denies polyuria or polydipsia. [] Lymphatic: Denies swollen glands. [] Psychiatric: Denies depression or anxiety. [] Heart Score: Risk Factors: Risk Factors: DM, Current or recent (<one month) smoker, HTN, HLP, family history of CAD, obesity. Risk Scores: Score 0 - 3: 2.5% MACE over next 6 weeks - Discharge Home Score 4 - 6: 20.3% MACE over next 6 weeks - Admit for Clinical Observation Score 7 - 10: 72.7% MACE over next 6 weeks - Early Invasive Strategies Allergies: Allergies: Allergies Coded Allergies Type Severity Reaction Last Updated Verified No Known Drug Allergies 08/05/15 No Physical Exam: PE: Constitutional: Well developed, well nourished, no acute distress, non-toxic appearance. [] HENT: Normocephalic, atraumatic, bilateral external ears normal, nose normal. [] Eyes: PERRLA, EOMI, conjunctiva normal, no discharge. [] Neck: Normal range of motion, no stridor. [] Cardiovascular:Heart rate regular rhythm Lungs & Thorax: Respirations even and unlabored, no retractions, no respiratory distress Abdomen: Bowel sounds normal, soft, no tenderness; palpable uterine fundus at the umbilicus; heart tones upper 140s to low 150s [] Skin: Warm, dry, no erythema, no rash. [] Back: No tenderness, no CVA tenderness. [] Extremities: No cyanosis, ROM intact, no edema. [] Neurologic: Alert and oriented X 3, no focal deficits noted. [] Psychologic: Affect normal, judgement normal, mood normal. [] Current Patient Data: Labs: Laboratory Tests Test 02/29/20 13:15 02/29/20 13:20 02/29/20 13:55 Urine Collection Type Unknown Urine Color Yellow Urine Clarity Clear Urine pH 7.5 (<5.0-8.0) Urine Specific [place] 1.015 (1.000-1.030) Urine Protein Negative mg/dL (NEG-TRACE) Urine Glucose (UA) Negative mg/dL (NEG) Urine Ketones (Stick) Negative mg/dL (NEG) Urine Blood Negative (NEG) Urine Nitrite Negative (NEG) Urine Bilirubin Negative (NEG) Urine Urobilinogen Dipstick 0.2 mg/dL (0.2 mg/dL) Urine Leukocyte Esterase Negative (NEG) Urine RBC Occ /HPF (0-2) Urine WBC Occ /HPF (0-4) Urine Squamous Epithelial Cells Mod /LPF Urine Bacteria Moderate /HPF (0-FEW) POC Urine HCG, Qualitative Hcg positive (Negative) White Blood Count 12.5 x10^3/uL (4.0-11.0) H Red Blood Count 5.06 x10^6/uL (3.50-5.40) Hemoglobin 12.1 g/dL (12.0-15.5) Hematocrit 37.1 % (36.0-47.0) Mean Corpuscular Volume 73 fL (79-100) L Mean Corpuscular Hemoglobin 24 pg (25-35) L Mean Corpuscular Hemoglobin Concent 33 g/dL (31-37) Red Cell Distribution Width 18.4 % (11.5-14.5) H Platelet Count 276 x10^3/uL (140-400) Neutrophils (%) (Auto) 80 % (31-73) H Lymphocytes (%) (Auto) 14 % (24-48) L Monocytes (%) (Auto) 5 % (0-9) Eosinophils (%) (Auto) 1 % (0-3) Basophils (%) (Auto) 1 % (0-3) Neutrophils # (Auto) 10.0 x10^3/uL (1.8-7.7) H Lymphocytes # (Auto) 1.7 x10^3/uL (1.0-4.8) Monocytes # (Auto) 0.7 x10^3/uL (0.0-1.1) Eosinophils # (Auto) 0.1 x10^3/uL (0.0-0.7) Basophils # (Auto) 0.1 x10^3/uL (0.0-0.2) Sodium Level 138 mmol/L (136-145) Potassium Level 3.9 mmol/L (3.5-5.1) Chloride Level 104 mmol/L (98-107) Carbon Dioxide Level 21 mmol/L (21-32) Anion Gap 13 (6-14) Blood Urea Nitrogen 8 mg/dL (7-20) Creatinine 0.5 mg/dL (0.6-1.0) L Estimated GFR (Cockcroft-Gault) 149.1 Glucose Level 86 mg/dL (70-99) Calcium Level 9.3 mg/dL (8.5-10.1) Laboratory Tests 02/29/20 13:55 Laboratory Tests 02/29/20 13:55 Vital Signs: Vital Signs Date Time Temp Pulse Resp B/P (MAP) Pulse Ox O2 Delivery O2 Flow Rate FiO2 02/29/20 13:15 99.0 65 16 148/70 (96) 99 Room Air 99.0 EKG: EKG: [] Radiology/Procedures: Radiology/Procedures: PROCEDURE: OB LIMITED Limited OB ultrasound greater than 14 weeks 02/29/2020 Clinical History: Second trimester with lower abdominal pain. Technique: A real-time ultrasound examination of the gravid uterus was performed. Multiple images were obtained. Findings: Comparison study is dated 12/26/2019. There is a single living IUP. The fetus is in acephalic position. cardiac and somatic activity is seen. The heart rate is 144 beats per minutes. The maternal cervix is closed. The placenta is in posterior. No abnormality is seen. The amniotic fluid volume is within normal limits. Neither maternal ovary is visualized. The following measurements were obtained: BPD 4.72cm 20 weeks two days HC 17.75 cm 20weeks two days AC 15.21 cm 20weeks 3 days FL 3.47 cm 21 weeks 0 days The estimated gestational age by ultrasound is 20 weeks 4 days plus or minus a standard deviation of 10 days. The estimated date of delivery by ultrasound is 07/14/2020. Since the previous examination there has been appropriate interval growth. Detailed evaluation of anatomy was not performed. Impression: Single living IUP with an estimated gestational age by ultrasound of 20 weeks4 days +/- a standard deviation of 10 days. Since the previous examination has been appropriate interval growth. [] Course & Med Decision Making: Course & Med Decision Making Pertinent Labs and Imaging studies reviewed. (See chart for details) [] Dragon Disclaimer: Dragon Disclaimer: This electronic medical record was generated, in whole or in part, using a voice recognition dictation system. Departure Departure Impression: Primary Impression: Pain of round ligament during Disposition: 01 HOME, SELF-CARE Condition: STABLE Referrals: NO PCP (PCP) ELIANA CAMILO Jr, MD Patient Instructions: Round Ligament Pain Additional Instructions: Follow up with your primary care doctor or Dr. Camilo this week, call in the morning to advise them of your ER visit. Return to the ER if symptoms worsen. LISS LIZAMA BISQUE GRADER Feb 29, 2020 15:23
[2020-02-29 15:47] VITALS: BP 141/75
== END 2020-02-29 15:50 | disposition home or self-care (01) ==
LOC: ER 13:04
DX: O99.512 Diseases of the respiratory system complicating pregnancy, second trimester (principal); O26.892 Other specified pregnancy related conditions, second trimester; R10.2 Pelvic and perineal pain; J45.909 Unspecified asthma, uncomplicated; Z90.89 Acquired absence of other organs; Z98.890 Other specified postprocedural states; Z3A.20 20 weeks gestation of pregnancy
CPT/HCPCS: 36415; 76815; 80048; 81001; 81025; 85025; 87086; 99284

== ENCOUNTER 2020-03-29 15:23 | Observation (INO) | payer SELFPAY ==
[2020-03-29 16:18] LABS: BILIRUBIN,URINE NEGATIVE (NEG); CLARITY,URINE HAZY; COLOR,URINE YELLOW; NITRITE,URINE NEGATIVE (NEG); PROTEIN,URINE NEGATIVE (NEG-TRACE); UROBILINOGEN,URINE 0.2 mg/dL (0.2 mg/dL)
[2020-03-29 16:22] LABS: BACTERIA,URINE MANY /HPF (0-FEW); SQUAMOUS EPITHELIAL CELL,UR MOD /LPF
[2020-03-29 16:23] LABS: RBC,URINE 0 /HPF (0-2)
[2020-03-29 16:34] LABS: BASO % 0 % (0-3); EOS # 0.1 x10^3/uL (0.0-0.7); EOS % 1 % (0-3); HEMATOCRIT 33.7 % (36.0-47.0); LYMPH # 1.9 x10^3/uL (1.0-4.8); LYMPH % 14 % (24-48); MEAN CORPUSCULAR HEMOGLOBIN 25 pg (25-35); MEAN CORPUSCULAR HGB CONC 33 g/dL (31-37); MEAN CORPUSCULAR VOLUME 75 fL (79-100); MONO # 0.9 x10^3/uL (0.0-1.1); MONO % 6 % (0-9); NEUT # 10.8 x10^3/uL (1.8-7.7); NEUT % 79 % (31-73); PLATELET COUNT 285 x10^3/uL (140-400); RED CELL DISTRIBUTION WIDTH 16.7 % (11.5-14.5); WHITE BLOOD COUNT 13.7 x10^3/uL (4.0-11.0)
[2020-03-29 16:44] LABS: CALCIUM 8.8 mg/dL (8.5-10.1); CREATININE 0.5 mg/dL (0.6-1.0); GFR 149.1; POTASSIUM 4.1 mmol/L (3.5-5.1)
[2020-03-29 16:48] LABS: CREATININE,RANDOM URINE 44.8 mg/dL (Not Establ.)
[2020-03-29 16:50] LABS: ALBUMIN 2.5 g/dL (3.4-5.0); ALBUMIN/GLOBULIN RATIO 0.5 (1.0-1.7); TOTAL BILIRUBIN 0.2 mg/dL (0.2-1.0); TOTAL PROTEIN 7.1 g/dL (6.4-8.2)
== END 2020-03-29 17:35 | disposition home or self-care (01) ==
LOC: 3 SO LND 15:23
PROVIDERS: ADMIT Obstetrics & Gynecology; ATTEND Obstetrics & Gynecology
DX: O13.2 Gestational [pregnancy-induced] hypertension without significant proteinuria, second trimester (principal); Z3A.24 24 weeks gestation of pregnancy; Z79.899 Other long term (current) drug therapy
CPT/HCPCS: 36415; 80053; 81001; 82570; 83615; 84156; 84550; 85025; 87086; G0378; G0379

== ENCOUNTER 2020-05-17 21:02 | Observation (INO) | payer SELFPAY ==
[2020-05-17] MEDS ORDERED: MAG HYDROX/ALUMINUM HYD/SIMETH 30 ML ORAL.SUSP PO PRN (21:15)
[2020-05-17] MEDS ORDERED: IV RINGERS,LACTATED 1000ML 1,000 ML IV SCH (21:15)
[2020-05-17] MEDS ORDERED: ACETAMINOPHEN 325 MG TABLET. PO PRN (21:15)
[2020-05-17 21:30] LABS: BILIRUBIN,URINE NEGATIVE (NEG); CLARITY,URINE CLEAR; NITRITE,URINE NEGATIVE (NEG); PROTEIN,URINE NEGATIVE (NEG-TRACE); UROBILINOGEN,URINE 0.2 mg/dL (0.2 mg/dL)
[2020-05-17 21:34] LABS: COLOR,URINE STRAW
[2020-05-17 21:35] LABS: BACTERIA,URINE MANY /HPF (0-FEW); SQUAMOUS EPITHELIAL CELL,UR MANY /LPF
[2020-05-17 21:37] LABS: BARBITURATES NEG (NEG); BENZODIAZEPINES NEG (NEG); CANNABINOIDS NEG (NEG); COCAINE NEG (NEG); METHADONE NEG (NEG); OPIATES NEG (NEG); PHENCYCLIDINE NEG (NEG)
[2020-05-17 21:39] LABS: RBC,URINE RARE /HPF (0-2)
[2020-05-17 21:42] LABS: AMPHETAMINE/METHAMPHETAMINE NEG (NEG)
== END 2020-05-17 22:15 | disposition home or self-care (01) ==
LOC: 3 SO LND 21:02
PROVIDERS: ADMIT Obstetrics & Gynecology; ATTEND Obstetrics & Gynecology
DX: O26.893 Other specified pregnancy related conditions, third trimester (principal); R10.30 Lower abdominal pain, unspecified; Z3A.31 31 weeks gestation of pregnancy
CPT/HCPCS: 80307; 81001; 87086; G0379

== ENCOUNTER 2020-06-14 11:37 | Observation (INO) | payer SELFPAY ==
[2020-06-14] MEDS ORDERED: IV RINGERS,LACTATED 1000ML 1,000 ML IV SCH (11:42)
[2020-06-14 12:21] LABS: CREATININE,RANDOM URINE 47.6 mg/dL (Not Establ.)
[2020-06-14 13:04] LABS: BASO # 0.1 x10^3/uL (0.0-0.2); BASO % 1 % (0-3); EOS # 0.1 x10^3/uL (0.0-0.7); EOS % 1 % (0-3); HEMATOCRIT 32.3 % (36.0-47.0); LYMPH # 1.5 x10^3/uL (1.0-4.8); LYMPH % 13 % (24-48); MEAN CORPUSCULAR HEMOGLOBIN 25 pg (25-35); MEAN CORPUSCULAR HGB CONC 34 g/dL (31-37); MEAN CORPUSCULAR VOLUME 75 fL (79-100); MONO # 0.7 x10^3/uL (0.0-1.1); MONO % 6 % (0-9); NEUT # 9.6 x10^3/uL (1.8-7.7); NEUT % 80 % (31-73); PLATELET COUNT 296 x10^3/uL (140-400); RED BLOOD COUNT 4.34 x10^6/uL (3.50-5.40); RED CELL DISTRIBUTION WIDTH 15.2 % (11.5-14.5)
[2020-06-14 13:17] LABS: CREATININE 0.7 mg/dL (0.6-1.0); GFR 100.4; POTASSIUM 3.9 mmol/L (3.5-5.1)
[2020-06-14 13:23] LABS: ALBUMIN 2.3 g/dL (3.4-5.0); ALBUMIN/GLOBULIN RATIO 0.5 (1.0-1.7); TOTAL BILIRUBIN 0.2 mg/dL (0.2-1.0)
== END 2020-06-14 15:26 | disposition home or self-care (01) ==
LOC: 3 SO LND 11:37
PROVIDERS: ADMIT Obstetrics & Gynecology; ATTEND Obstetrics & Gynecology
DX: O13.3 Gestational [pregnancy-induced] hypertension without significant proteinuria, third trimester (principal); Z3A.35 35 weeks gestation of pregnancy
CPT/HCPCS: 80053; 82570; 84156; 85025; 87653; G0378; G0379; 36415

== ENCOUNTER 2020-06-21 10:30 | Observation (INO) | payer SELFPAY ==
[2020-06-21 11:26] LABS: BILIRUBIN,URINE NEGATIVE (NEG); CLARITY,URINE CLEAR; COLOR,URINE YELLOW; NITRITE,URINE NEGATIVE (NEG); PROTEIN,URINE NEGATIVE (NEG-TRACE); UROBILINOGEN,URINE 0.2 mg/dL (0.2 mg/dL)
[2020-06-21 11:27] LABS: CREATININE,RANDOM URINE < 13.0 mg/dL (Not Establ.)
[2020-06-21 11:37] LABS: BASO # 0.1 x10^3/uL (0.0-0.2); BASO % 1 % (0-3); EOS # 0.1 x10^3/uL (0.0-0.7); EOS % 1 % (0-3); HEMATOCRIT 32.3 % (36.0-47.0); HEMOGLOBIN 10.7 g/dL (12.0-15.5); LYMPH # 1.4 x10^3/uL (1.0-4.8); LYMPH % 10 % (24-48); MEAN CORPUSCULAR HEMOGLOBIN 24 pg (25-35); MEAN CORPUSCULAR HGB CONC 33 g/dL (31-37); MEAN CORPUSCULAR VOLUME 73 fL (79-100); MONO # 0.8 x10^3/uL (0.0-1.1); MONO % 6 % (0-9); NEUT # 11.4 x10^3/uL (1.8-7.7); NEUT % 83 % (31-73); PLATELET COUNT 288 x10^3/uL (140-400); RED BLOOD COUNT 4.41 x10^6/uL (3.50-5.40); WHITE BLOOD COUNT 13.8 x10^3/uL (4.0-11.0)
[2020-06-21 11:40] LABS: SQUAMOUS EPITHELIAL CELL,UR MANY /LPF
[2020-06-21 11:43] LABS: BACTERIA,URINE MANY /HPF (0-FEW)
[2020-06-21 11:44] LABS: RBC,URINE OCC /HPF (0-2)
[2020-06-21 11:49] LABS: ALBUMIN 2.3 g/dL (3.4-5.0); ALBUMIN/GLOBULIN RATIO 0.6 (1.0-1.7); CALCIUM 8.6 mg/dL (8.5-10.1); CREATININE 0.5 mg/dL (0.6-1.0); TOTAL BILIRUBIN 0.1 mg/dL (0.2-1.0); TOTAL PROTEIN 6.4 g/dL (6.4-8.2); URIC ACID 4.5 mg/dL (2.6-6.0)
== END 2020-06-21 13:07 | disposition home or self-care (01) ==
LOC: 3 SO LND 10:30
PROVIDERS: ADMIT Obstetrics & Gynecology; ATTEND Obstetrics & Gynecology
DX: O13.3 Gestational [pregnancy-induced] hypertension without significant proteinuria, third trimester (principal); Z3A.36 36 weeks gestation of pregnancy
CPT/HCPCS: 36415; 80053; 81001; 82570; 84156; 84550; 85025; 87086; G0378; G0379

== ENCOUNTER 2020-06-24 18:17 | Observation (INO) | payer SELFPAY ==
[2020-06-24] MEDS ORDERED: IV RINGERS,LACTATED 1000ML 1,000 ML IV SCH (18:19)
[2020-06-24 18:53] LABS: BACTERIA,URINE MODERATE /HPF (0-FEW); BILIRUBIN,URINE NEGATIVE (NEG); CLARITY,URINE CLEAR; COLOR,URINE YELLOW; NITRITE,URINE NEGATIVE (NEG); PROTEIN,URINE NEGATIVE (NEG-TRACE); RBC,URINE 0 /HPF (0-2); SQUAMOUS EPITHELIAL CELL,UR MOD /LPF; UROBILINOGEN,URINE 0.2 mg/dL (0.2 mg/dL)
== END 2020-06-24 19:45 | disposition home or self-care (01) ==
LOC: 3 SO LND 18:17
PROVIDERS: ADMIT Obstetrics & Gynecology; ATTEND Obstetrics & Gynecology
DX: O36.8130 Decreased fetal movements, third trimester, not applicable or unspecified (principal); O99.343 Other mental disorders complicating pregnancy, third trimester; O26.893 Other specified pregnancy related conditions, third trimester; R11.0 Nausea; Z3A.36 36 weeks gestation of pregnancy; Z79.899 Other long term (current) drug therapy
CPT/HCPCS: 81001; 87086; G0378; G0379

== ENCOUNTER 2020-06-28 11:13 | Observation (INO) | payer SELFPAY | END 2020-06-28 12:30 | disposition home or self-care (01) | LOC: 3 SO LND 11:13 | PROVIDERS: ADMIT Obstetrics & Gynecology; ATTEND Obstetrics & Gynecology | DX: O13.3 Gestational [pregnancy-induced] hypertension without significant proteinuria, third trimester (principal); Z3A.37 37 weeks gestation of pregnancy | CPT/HCPCS: 59025; G0378; G0379 ==

== ENCOUNTER → 2020-06-30 | Outpatient (CLI) | payer SELFPAY | END | disposition home or self-care (01) | LOC: LAB 13:57 | PROVIDERS: ATTEND Obstetrics & Gynecology | DX: Z01.818 Encounter for other preprocedural examination (principal); Z11.59 Encounter for screening for other viral diseases | CPT/HCPCS: U0003-CS ==

== ENCOUNTER 2020-07-05 17:44 | Inpatient (IN) | payer MEDICAID, OTHER ==
[~2020-07-05] VITALS: Ht 162.6 cm; Wt 150.6 kg
[2020-07-05 18:00] VITALS: BP 164/78
[2020-07-05] MEDS ORDERED: OXYTOCIN 30 UNIT/500 ML PREMIX 500 ML IV PRN (19:15)
[2020-07-05] MEDS ORDERED: ONDANSETRON PF 4 MG/2 ML VIAL. IVP PRN (19:15)
[2020-07-05] MEDS ORDERED: TERBUTALINE 1 MG/ML VIAL. SQ PRN (19:15)
[2020-07-05] MEDS ORDERED: 0.9 % SODIUM CHLORIDE 10 ML DISP.SYRIN. IV PRN (19:15)
[2020-07-05] MEDS ORDERED: ACETAMINOPHEN 325 MG TABLET. PO PRN (19:15)
[2020-07-05] MEDS ORDERED: LIDOCAINE 1% PF 30 ML VIAL. INJ PRN (19:15)
[2020-07-05] MEDS ORDERED: BUTORPHANOL 2 MG/ML VIAL. IVP PRN ×2 (19:15)
[2020-07-05] MEDS ORDERED: fentaNYL PF VIAL 100 MCG/2 ML VIAL IVP PRN ×3 (19:15)
[2020-07-05] MEDS ORDERED: IBUPROFEN 400 MG TABLET. PO PRN (19:15)
[2020-07-05 19:23] LABS: BASO # 0.1 x10^3/uL (0.0-0.2); BASO % 0 % (0-3); EOS # 0.2 x10^3/uL (0.0-0.7); EOS % 1 % (0-3); HEMATOCRIT 34.7 % (36.0-47.0); HEMOGLOBIN 11.3 g/dL (12.0-15.5); LYMPH # 1.9 x10^3/uL (1.0-4.8); LYMPH % 14 % (24-48); MEAN CORPUSCULAR HEMOGLOBIN 24 pg (25-35); MEAN CORPUSCULAR HGB CONC 33 g/dL (31-37); MEAN CORPUSCULAR VOLUME 74 fL (79-100); MONO % 7 % (0-9); NEUT # 10.7 x10^3/uL (1.8-7.7); NEUT % 77 % (31-73); PLATELET COUNT 310 x10^3/uL (140-400); RED BLOOD COUNT 4.68 x10^6/uL (3.50-5.40); RED CELL DISTRIBUTION WIDTH 15.2 % (11.5-14.5); WHITE BLOOD COUNT 13.8 x10^3/uL (4.0-11.0)
[2020-07-05 19:25] LABS: BILIRUBIN,URINE NEGATIVE (NEG); CLARITY,URINE CLEAR; COLOR,URINE YELLOW; NITRITE,URINE NEGATIVE (NEG); PH,URINE 6.5 (<5.0-8.0); PROTEIN,URINE NEGATIVE (NEG-TRACE); UROBILINOGEN,URINE 0.2 mg/dL (0.2 mg/dL)
[2020-07-05] MEDS: IV RINGERS,LACTATED 1000ML 1,000 ML IV SCH ×2 (19:28→23:58)
[2020-07-05] MEDS ORDERED: DINOPROSTONE 10 MG SUPP.VAG VG ONE (19:30)
[2020-07-05 19:36] LABS: BACTERIA,URINE FEW /HPF (0-FEW); RBC,URINE RARE /HPF (0-2); WBC,URINE >40 /HPF (0-4)
[2020-07-05 19:37] LABS: SQUAMOUS EPITHELIAL CELL,UR MANY /LPF
--- NOTE | 2020-07-06 03:32 | PDOC1 ---
OB - History Hx of Present Care: Good Care Ultrasounds: Normal mid trimester US Obstetrical Complications: Gestational Hypertension Medical Complications: None Past Family/Social History * Past Medical, Surgical, Family and Obstetric Histories reviewed from chart. Rubella: Immune RPR/VDRL: Negative GBS Status: Negative HBsAG: Negative OB - Chief Complaint & HPI Date of Admission: Date of Admission: Jul 05, 2020 at 17:44 Chief Complaint/History : 1 Para: 0 EGA: 38 Reason for admission: induction of labor Indication for induction: medical complication (gestational hypertension) Admission Nurse Assessment Rev: Yes OB - Admission Exam Physical Exam HEENT: Normal Heart: Regular Rate Lungs: Clear Abdomen: Gravid, Non tender, Soft Extremities: Edema Reflexes: Normal Cervical Dilatation: 1cm Effacement: 25% Station: -3 Membranes: Intact Heart Rate: Normal Accelerations: Accelerations Present Decelerations: No decelerations Contractions on Admission: None Text A: 38 wks IUP Gestational HTN P: Admit IOL cervidil, then pitocin in am. ELIANA VIRAMONTES Jr, MD Jul 06, 2020 03:32
[2020-07-06] MEDS ORDERED: OXYTOCIN 30 UNIT/500 ML PREMIX 500 ML IV PRN (06:00)
[2020-07-06] MEDS: IV RINGERS,LACTATED 1000ML 1,000 ML IV SCH ×2 (08:34→20:42)
[2020-07-06] MEDS ORDERED: DINOPROSTONE 10 MG SUPP.VAG VG ONE (19:30)
[2020-07-07] MEDS: IV RINGERS,LACTATED 1000ML 1,000 ML IV SCH ×3 (06:27→19:09)
[2020-07-07] MEDS ORDERED: OXYTOCIN 30 UNIT/500 ML PREMIX 500 ML IV ONE (07:30)
--- NOTE | 2020-07-07 11:07 | PDOC ---
VAGINAL DELIVERY DATE DATE: 07/07/20 TIME: 11:05 : 1 Para: 1 EGA: 38 VAGINAL DELIVERY: VTX VACCUM ASSISTED: No PLACENTA: Spontaneous 8/9 SEX: Female WEIGHT Weight [ pending ] Nuchal Cord: No Amniotic Fluid: Clear PAIN: Local EPISIOTOMY: No EXTENSION: Yes (2nd degree midline laceration) REPAIRED WITH 2-0 vicryl EBL 400 ml COMPLICATIONS none CONDITION pt. stable Signs of Intrauterine Infectio: None Shoulder Dystocia: No ELIANA VIRAMONTES Jr, MD Jul 07, 2020 11:07
[2020-07-07] MEDS ORDERED: MMR per PROTOCOL. MC PRN (11:15)
[2020-07-07] MEDS ORDERED: DOCUSATE SODIUM 100 MG CAPSULE. PO PRN (11:15)
[2020-07-07] MEDS ORDERED: TDaP (Adacel) per PROTOCOL. MC PRN (11:15)
[2020-07-07] MEDS ORDERED: oxyCODONE/APAP 5/325 1 TAB TABLET PO PRN (11:15)
[2020-07-07] MEDS ORDERED: HYDROCORTISONE 1% TOPICAL OINTMENT 30GM TUBE. TP PRN (11:15)
[2020-07-07] MEDS ORDERED: MAGNESIUM HYDROXIDE 2,400 MG/30 ML ORAL.SUSP. PO PRN (11:15)
[2020-07-07] MEDS ORDERED: OXYTOCIN 30 UNIT/500 ML PREMIX 500 ML IV PRN (11:15)
[2020-07-07] MEDS ORDERED: MAG HYDROX/ALUMINUM HYD/SIMETH 30 ML ORAL.SUSP PO PRN (11:15)
[2020-07-07] MEDS ORDERED: 0.9 % SODIUM CHLORIDE 10 ML DISP.SYRIN. IV PRN (11:15)
[2020-07-07] MEDS ORDERED: diphenhydrAMINE HCL 25 MG CAPSULE PO PRN (11:15)
[2020-07-07] MEDS ORDERED: ZOLPIDEM 5 MG TABLET. PO PRN (11:15)
[2020-07-07] MEDS ORDERED: PHENYLEPH/MINERAL OIL/PETROLAT RECTAL OINTMENT TUBE. RC PRN (11:15)
[2020-07-07] MEDS ORDERED: ACETAMINOPHEN 325 MG TABLET. PO PRN (11:15)
[2020-07-07] MEDS ORDERED: SIMETHICONE 80 MG TAB.CHEW PO PRN (11:15)
[2020-07-07] MEDS: BENZOCAINE 20% TOPICAL AEROSOL SPRAY 57GM CAN. TP PRN (14:02)
[2020-07-07] MEDS: IBUPROFEN 400 MG TABLET. PO PRN (14:02)
[2020-07-07 14:30] VITALS: BP 125/84
[2020-07-07 15:00] VITALS: BP 120/78
[2020-07-07 16:26] VITALS: BP 117/74
[2020-07-07] MEDS: FERROUS SULFATE 325 MG TABLET. PO SCH (17:00)
[2020-07-07 19:10] VITALS: BP 133/91
[2020-07-07 20:00] VITALS: BP 113/71
[2020-07-07 22:00] VITALS: BP 113/71
[2020-07-08 02:00] VITALS: BP 108/60
[2020-07-08] MEDS: IBUPROFEN 400 MG TABLET. PO PRN (02:03)
[2020-07-08 06:26] VITALS: BP 100/60
[2020-07-08 07:22] LABS: BASO # 0.1 x10^3/uL (0.0-0.2); BASO % 0 % (0-3); EOS # 0.2 x10^3/uL (0.0-0.7); EOS % 2 % (0-3); HEMOGLOBIN 8.9 g/dL (12.0-15.5); LYMPH # 1.9 x10^3/uL (1.0-4.8); LYMPH % 15 % (24-48); MEAN CORPUSCULAR HEMOGLOBIN 24 pg (25-35); MEAN CORPUSCULAR HGB CONC 33 g/dL (31-37); MEAN CORPUSCULAR VOLUME 74 fL (79-100); MONO # 0.9 x10^3/uL (0.0-1.1); MONO % 7 % (0-9); NEUT # 9.9 x10^3/uL (1.8-7.7); NEUT % 77 % (31-73); PLATELET COUNT 289 x10^3/uL (140-400); RED BLOOD COUNT 3.67 x10^6/uL (3.50-5.40); RED CELL DISTRIBUTION WIDTH 15.5 % (11.5-14.5)
[2020-07-08] MEDS ORDERED: MULTIVITAMIN with MINERAL TABLET. PO SCH (09:00)
[2020-07-08 09:18] VITALS: BP 125/80
[2020-07-08] MEDS: FERROUS SULFATE 325 MG TABLET. PO SCH (09:18)
--- NOTE | 2020-07-08 10:04 | PDOC3 ---
OB DISCHARGE SUMMARY DATE OF ADMISSION: 07/05/20 DATE OF DISCHARGE: 07/08/20 REASON FOR ADMISSION: Induction of labor (Gestational HTN) INTRAPARTUM PROCEDURES: Spontanous Vag Deliv DISCHARGE DIAGNOSIS: Term Delivered (Gestational HTN) DISCHARGE INFORMATION: Activity (ad luigi), Diet (regular), Instructions (pelvic rest x 6 wks) HOSPITAL COURSE Term gestation delivered vaginally without complications. ELIANA VIRAMONTES Jr, MD Jul 08, 2020 10:04
[2020-07-08] MEDS ORDERED: IBUP-1027 PO (10:06)
--- NOTE | 2020-07-08 10:07 | DISCH ---
DISCHARGE INSTRUCTIONS Condition on Discharge Condition on Discharge: Stable Activity After Discharge Activity Instructions for Disc: Activity as tolerated Bathing Instructions: Shower-keep dressing dry Lifting Instructions after Dis: Do not lift >10 pounds Driving Instructions after Dis: Do not drive today Diet after Discharge Diet after Discharge: Regular Wound Incision Care Wound/Incision Care: No wound care needed Contacting the after DC Call your doctor for: Concerns you may have Follow-Up Follow up with: Dr. Camilo in 2 wks blood pressure check ELINAA CAMILO Jr, MD Jul 08, 2020 10:07
[2020-07-08] MEDS: BENZOCAINE 20% TOPICAL AEROSOL SPRAY 57GM CAN. TP PRN (12:24)
[2020-07-08 12:26] VITALS: BP 134/78
--- NOTE | 2020-07-08 13:15 | NUR ---
Pt. dc'd to home; ambulated to personal vehicle accompanied by RN and family. Pt. plans to follow-up with Dr. Camilo in two weeks.
== END 2020-07-08 13:15 | disposition home or self-care (01) | DRG 807 ==
LOC: 3 SO LND 17:44 → 3 NORTH 07-07 14:59
PROVIDERS: ADMIT Obstetrics & Gynecology; ATTEND Obstetrics & Gynecology
PROC: 10E0XZZ Delivery of Products of Conception, External Approach (ICD-10-PCS; principal; 2020-07-07)
PROC: 0KQM0ZZ Repair Perineum Muscle, Open Approach (ICD-10-PCS; 2020-07-07)
DX: O13.4 Gestational [pregnancy-induced] hypertension without significant proteinuria, complicating childbirth (principal); Z37.0 Single live birth; O70.1 Second degree perineal laceration during delivery; O60.23X0 Term delivery with preterm labor, third trimester, not applicable or unspecified; Z3A.38 38 weeks gestation of pregnancy
CPT/HCPCS: 36415; 81001; 85025; 86592; 86850; 86900; 86901; 87086; J2590; J3010; J3490; J7120; G0378

== ENCOUNTER 2021-03-24 12:38 | Emergency (ER) | payer OTHER, MEDICAID ==
[~2021-03-24] VITALS: Ht 162.6 cm; Wt 95.0 kg
[~2021-03-24 12:38] MED LIST changes: +IBUP-1027 PO
[2021-03-24] MEDS ORDERED: IV NORMAL SALINE 1000ML BAG 1,000 ML IV ONE (13:15)
[2021-03-24] MEDS ORDERED: methylPREDNISolone SOD SUCC PF 125 MG/2 ML VIAL. IV ONE (13:15)
[2021-03-24 13:28] LABS: BASO # 0.1 x10^3/uL (0.0-0.2); BASO % 1 % (0-3); EOS # 0.2 x10^3/uL (0.0-0.7); EOS % 2 % (0-3); HEMOGLOBIN 11.4 g/dL (12.0-15.5); LYMPH # 2.3 x10^3/uL (1.0-4.8); LYMPH % 22 % (24-48); MEAN CORPUSCULAR HEMOGLOBIN 22 pg (25-35); MEAN CORPUSCULAR HGB CONC 32 g/dL (31-37); MEAN CORPUSCULAR VOLUME 67 fL (79-100); MONO # 0.6 x10^3/uL (0.0-1.1); MONO % 5 % (0-9); NEUT # 7.4 x10^3/uL (1.8-7.7); NEUT % 70 % (31-73); PLATELET COUNT 322 x10^3/uL (140-400); RED CELL DISTRIBUTION WIDTH 15.8 % (11.5-14.5); WHITE BLOOD COUNT 10.5 x10^3/uL (4.0-11.0)
[2021-03-24 13:34] LABS: BARBITURATES NEG (NEG); BENZODIAZEPINES NEG (NEG); CANNABINOIDS NEG (NEG); COCAINE NEG (NEG); METHADONE NEG (NEG); OPIATES NEG (NEG); PHENCYCLIDINE NEG (NEG)
[2021-03-24 13:35] LABS: AMPHETAMINE/METHAMPHETAMINE NEG (NEG)
[2021-03-24 13:41] LABS: CALCIUM 8.5 mg/dL (8.5-10.1); CREATININE 0.6 mg/dL (0.6-1.0); GFR 119.9; POTASSIUM 3.5 mmol/L (3.5-5.1)
[2021-03-24 13:47] LABS: ALBUMIN 3.5 g/dL (3.4-5.0); ALBUMIN/GLOBULIN RATIO 0.8 (1.0-1.7); TOTAL BILIRUBIN 0.4 mg/dL (0.2-1.0); TOTAL PROTEIN 7.7 g/dL (6.4-8.2)
--- NOTE | 2021-03-24 14:00 | RAD ---
EXAMINATION: CT HEAD/BRAIN WO (CT HEAD WITHOUT IV CONTRAST) CLINICAL HISTORY: Headache with tingling/numbness to face TECHNIQUE: Serial axial images without IV contrast were obtained from the vertex to the foramen magnu m. CT Dose Reduction Employed: One or more of the following individualized dose reduction techniques wer e utilized for this examination: 1. Automated exposure control 2. Adjustment of the mA and/or kV ac cording to patient size 3. Use of iterative reconstruction technique. COMPARISON: None FINDINGS: Acute Change: No definitive evidence of an acute infarct or other acute parenchymal process, however, nonspecific subtle hypoattenuation is suggested in the menezes radiata/centrum semiovale and subcorti christian white matter in the right frontal lobe. No overlying asymmetric sulcal effacement. Hemorrhage: No evidence of acute intracranial hemorrhage. Mass Lesion/Mass Effect: No evidence of intracranial mass or extraaxial fluid collection. No signific ant mass effect. Parenchyma: No significant volume loss. Ventricles: Ventricles within normal limits for age. Paranasal Sinuses and Skull Base: Complete opacification of the right maxillary sinus. Visualized sku ll base and soft tissues unremarkable. IMPRESSION: Right maxillary sinusitis with complete sinus opacification. Nonspecific subtle white matter hypoattenuation suggested in the right frontal lobe, correlate clinic ally and consider MRI for further evaluation if indicated. Electronically signed by: Aries Wallace DO (03/24/2021 1:58 PM) [facility]
[2021-03-24 15:05] LABS: HYPOCHROMIA MOD; PLT ESTIMATE ADEQUATE (ADEQUATE)
[2021-03-24 15:06] LABS: ANISOCYTOSIS SLIGHT; MICROCYTOSIS MARKED
[2021-03-24 15:21] VITALS: BP 122/58
--- NOTE | 2021-03-24 15:29 | PHYS DOC ---
Past Medical History Past Medical History: Asthma, Migraines Past Surgical History: Appendectomy, Oophorectomy, Tonsillectomy Additional Past Surgical Histo: ovarian cyst, left ovary Smoking Status: Never Smoker Alcohol Use: None Drug Use: None General Adult EDM: Chief Complaint: HEADACHE HPI: HPI: Patient is a 25 year old 25-year-old female patient with history of migraine headaches presenting to the ED today complaining of left-sided migraine headache with numbness and tingling to the face that began at 11:45 AM while going to work. Patient reports history of similar migraine headaches with the exception of the numbness and tingling that she states is new. Patient denies any nausea, vomiting. Denies any chance she is . Patient appears anxious and curr ently tearful Review of Systems: Review of Systems: Constitutional: Denies fever or chills. [] Eyes: Denies change in visual acuity. [] HENT: Denies nasal congestion or sore throat. [] Respiratory: Denies cough or shortness of breath. [] Cardiovascular: Denies chest pain or edema. [] GI: Denies abdominal pain, nausea, vomiting, bloody stools or diarrhea. [] : Denies dysuria. [] Musculoskeletal: Denies back pain or joint pain. [] Integument: Denies rash. [] Neurologic: Reports headache with left-sided facial numbness and tingling, denie s, focal weakness or sensory changes. [] Psychiatric: Denies depression or anxiety. [] Heart Score: C/O Chest Pain: N/A Risk Factors: Risk Factors: DM, Current or recent (<one month) smoker, HTN, HLP, family history of CAD, obesity. Risk Scores: Score 0 - 3: 2.5% MACE over next 6 weeks - Discharge Home Score 4 - 6: 20.3% MACE over next 6 weeks - Admit for Clinical Observation Score 7 - 10: 72.7% MACE over next 6 weeks - Early Invasive Strategies Current Medications: Current Medications Medications (Trade) Dose Ordered Sig/Freddy Start Time Stop Time Status Last Admin Dose Admin Methylprednisolone Sodium Succinate (SOLU-Medrol 125MG VIAL) 125 mg 1X ONCE 03/24/21 13:15 03/24/21 13:19 DC 03/24/21 13:51 125 MG Sodium Chloride 1,000 ml @ 1,000 mls/hr 1X ONCE 03/24/21 13:15 03/24/21 14:14 DC 03/24/21 13:52 1,000 MLS/HR Allergies: Allergies: Allergies Coded Allergies Type Severity Reaction Last Updated Verified No Known Drug Allergies 08/05/15 No Physical Exam: PE: Constitutional: Well developed, well nourished, no acute distress, non-toxic appearance. [] HENT: Normocephalic, atraumatic, bilateral external ears normal, oropharynx moist, no oral exudates, nose normal. [] Eyes: PERRLA, EOMI, conjunctiva normal, no discharge. [] Neck: Normal range of motion, no tenderness, supple, no stridor. [] Cardiovascular:Heart rate regular rhythm, no murmur [] Lungs & Thorax: Bilateral breath sounds clear to auscultation [] Abdomen: Bowel sounds normal, soft, no tenderness, no masses, no pulsatile masses. [] Skin: Warm, dry, no erythema, no rash. [] Back: No tenderness, no CVA tenderness. [] Extremities: No tenderness, no cyanosis, no clubbing, ROM intact, no edema. [] Neurologic: Alert and oriented X 3, normal motor function, normal sensory function, no focal deficits noted. Cranial nerves II through XII intact Psychologic: Patient is tearful, appears anxious Current Patient Data: Labs: Laboratory Tests Test 03/24/21 13:08 03/24/21 13:11 White Blood Count 10.5 x10^3/uL (4.0-11.0) Red Blood Count 5.20 x10^6/uL (3.50-5.40) Hemoglobin 11.4 g/dL (12.0-15.5) L Hematocrit 35.0 % (36.0-47.0) L Mean Corpuscular Volume 67 fL (79-100) L Mean Corpuscular Hemoglobin 22 pg (25-35) L Mean Corpuscular Hemoglobin Concent 32 g/dL (31-37) Red Cell Distribution Width 15.8 % (11.5-14.5) H Platelet Count 322 x10^3/uL (140-400) Neutrophils (%) (Auto) 70 % (31-73) Lymphocytes (%) (Auto) 22 % (24-48) L Monocytes (%) (Auto) 5 % (0-9) Eosinophils (%) (Auto) 2 % (0-3) Basophils (%) (Auto) 1 % (0-3) Neutrophils # (Auto) 7.4 x10^3/uL (1.8-7.7) Lymphocytes # (Auto) 2.3 x10^3/uL (1.0-4.8) Monocytes # (Auto) 0.6 x10^3/uL (0.0-1.1) Eosinophils # (Auto) 0.2 x10^3/uL (0.0-0.7) Basophils # (Auto) 0.1 x10^3/uL (0.0-0.2) Platelet Estimate Adequate (ADEQUATE) Hypochromasia Mod Anisocytosis Slight Microcytosis Marked Sodium Level 139 mmol/L (136-145) Potassium Level 3.5 mmol/L (3.5-5.1) Chloride Level 104 mmol/L (98-107) Carbon Dioxide Level 25 mmol/L (21-32) Anion Gap 10 (6-14) Blood Urea Nitrogen 13 mg/dL (7-20) Creatinine 0.6 mg/dL (0.6-1.0) Estimated GFR (Cockcroft-Gault) 119.9 BUN/Creatinine Ratio 22 (6-20) H Glucose Level 151 mg/dL (70-99) H Calcium Level 8.5 mg/dL (8.5-10.1) Total Bilirubin 0.4 mg/dL (0.2-1.0) Aspartate Amino Transferase (AST) 39 U/L (15-37) H Alanine Aminotransferase (ALT) 49 U/L (14-59) Alkaline Phosphatase 120 U/L (46-116) H Total Protein 7.7 g/dL (6.4-8.2) Albumin 3.5 g/dL (3.4-5.0) Albumin/Globulin Ratio 0.8 (1.0-1.7) L Urine Opiates Screen Neg (NEG) Urine Methadone Screen Neg (NEG) Urine Barbiturates Neg (NEG) Urine Phencyclidine Screen Neg (NEG) Urine Amphetamine/Methamphetamine Neg (NEG) Urine Benzodiazepines Screen Neg (NEG) Urine Cocaine Screen Neg (NEG) Urine Cannabinoids Screen Neg (NEG) Urine Ethyl Alcohol Neg (NEG) POC Urine HCG, Qualitative Hcg negative (Negative) Laboratory Tests 03/24/21 13:08 Laboratory Tests 03/24/21 13:08 Vital Signs: Vital Signs Date Time Temp Pulse Resp B/P (MAP) Pulse Ox O2 Delivery O2 Flow Rate FiO2 03/24/21 13:00 98.3 111 26 187/117 (140) 95 Room Air 98.3 EKG: EKG: [] Radiology/Procedures: Radiology/Procedures: []PROCEDURE: CT HEAD WO CONTRAST EXAMINATION: CT HEAD/BRAIN WO (CT HEAD WITHOUT IV CONTRAST) CLINICAL HISTORY: Headache with tingling/numbness to face TECHNIQUE: Serial axial images without IV contrast were obtained from the vertex to the foramen magnum. CT Dose Reduction Employed: One or more of the following individualized dose reduction techniques were utilized for this examination: 1. Automated exposure control 2. Adjustment of the mA and/or kV according to patient size 3. Use of iterative reconstruction technique. COMPARISON: None FINDINGS: Acute Change: No definitive evidence of an acute infarct or other acute parenchymal process, however, nonspecific subtle hypoattenuation is suggested in the menezes radiata/centrum semiovale and subcortical white matter in the right frontal lobe. No overlying asymmetric sulcal effacement. Hemorrhage: No evidence of acute intracranial hemorrhage. Mass Lesion/Mass Effect: No evidence of intracranial mass or extraaxial fluid collection. No significant mass effect. Parenchyma: No significant volume loss. Ventricles: Ventricles within normal limits for age. Paranasal Sinuses and Skull Base: Complete opacification of the right maxillary sinus. Visualized skull base and soft tissues unremarkable. IMPRESSION: Right maxillary sinusitis with complete sinus opacification. Nonspecific subtle white matter hypoattenuation suggested in the right frontal lobe, correlate clinically and consider MRI for further evaluation if indicated. Electronically signed by: Aries Nathan DO (03/24/2021 1:58 PM) [facility] DICTATED and SIGNED BY: ARIES NATHAN DO DATE: 03/24/21 [id number] 0 Course & Med Decision Making: Course & Med Decision Making Pertinent Labs and Imaging studies reviewed. (See chart for details) This is a 25-year-old female patient presenting to the ED today complaining of a migraine headache, she is also complaining of left-sided facial numbness and tingling, symptoms began at 1145. She has history of migraine headaches but today's headache is different due to the numbness and tingling to the face NIH is negative, labs are negative, test is negative. CT of the head was noted for right-sided sinusitis and Nonspecific subtle white matter hypoattenuation suggested in the right frontal lobe, correlate clinically and consider MRI for further evaluation if indicated. I spoke to Dr. Teiexira regarding patient's CT of the head, Dr. Teixeira stated patient can follow-up as an outpatient for MRI Dragon Disclaimer: Dragon Disclaimer: This electronic medical record was generated, in whole or in part, using a voice recognition dictation system. Departure Departure Impression: Primary Impression: Migraine headache Qualified Codes: G43.909 - Migraine, unspecified, not intractable, without status migrainosus Additional Impression: Acute sinusitis Qualified Codes: J01.00 - Acute maxillary sinusitis, unspecified Disposition: HOME / SELF CARE / HOMELESS Condition: STABLE Referrals: NO PCP (PCP) MANJINDER ESCOBEDO MD follow up in 1 week or your own primary care doctor Patient Instructions: Migraine Headache, [id number], Sinusitis Additional Instructions: You were evaluated in the emergency room for a migraine headache. Please follow-up with your primary care doctor for follow-up MRI as an outpatient. Take the medicines ordered until completed for sinus infection Scripts Amoxicillin/Potassium Clav (AUGMENTIN 875-125 TABLET) 1 Each Tablet 1 TAB PO BID for 10 Days, #20 TAB 0 Refills Prov: CHAD EDWARDS APRN 03/24/21 CHAD EDWARDS APRN March 24, 2021 15:29
[2021-03-24] MEDS ORDERED: AMOX1TAB61 PO (15:36)
== END 2021-03-24 16:30 | disposition home or self-care (01) ==
LOC: ER 12:38
DX: G43.909 Migraine, unspecified, not intractable, without status migrainosus (principal); J01.00 Acute maxillary sinusitis, unspecified; J45.909 Unspecified asthma, uncomplicated
CPT/HCPCS: 36415; 70450; 80053; 80307; 81025; 85025; 96361; 96374; 99285; J2930; J7030

== ENCOUNTER 2021-08-02 10:17 | Observation (INO) | payer MEDICAID, OTHER ==
[~2021-08-02] VITALS: Ht 162.6 cm; Wt 150.8 kg
[~2021-08-02 10:17] MED LIST changes: +AMOX1TAB61 PO; -DOXY100C2 PO; +DOXY100C3 PO
[2021-08-02] MEDS ORDERED: IV NORMAL SALINE 1000ML BAG 1,000 ML IV SCH ×2 (10:30→14:15)
[2021-08-02] MEDS ORDERED: fentaNYL PF VIAL 100 MCG/2 ML VIAL IVP ONE ×2 (10:30→12:45)
[2021-08-02] MEDS ORDERED: ONDANSETRON PF 4 MG/2 ML VIAL. IVP ONE (10:30)
[2021-08-02] MEDS ORDERED: IOHEXOL 300 MG/ML 100ML VIAL. IV ONE (10:45)
[2021-08-02] MEDS ORDERED: CONTRAST GIVEN. MC PRN ×2 (10:45→23:45)
[2021-08-02] MEDS ORDERED: ACETAMINOPHEN 500 MG TABLET PO ONE (10:45)
[2021-08-02 10:49] LABS: BILIRUBIN,URINE NEGATIVE (NEG); CLARITY,URINE CLEAR; COLOR,URINE YELLOW
[2021-08-02 10:50] LABS: NITRITE,URINE NEGATIVE (NEG); PROTEIN,URINE TRACE mg/dL (NEG-TRACE); UROBILINOGEN,URINE 0.2 mg/dL (0.2 mg/dL)
[2021-08-02 10:50] LABS: BASO # 0.1 x10^3/uL (0.0-0.2); BASO % 1 % (0-3); EOS # 0.2 x10^3/uL (0.0-0.7); EOS % 1 % (0-3); HEMATOCRIT 35.2 % (36.0-47.0); HEMOGLOBIN 11.4 g/dL (12.0-15.5); LYMPH # 1.9 x10^3/uL (1.0-4.8); LYMPH % 13 % (24-48); MEAN CORPUSCULAR HEMOGLOBIN 22 pg (25-35); MEAN CORPUSCULAR HGB CONC 32 g/dL (31-37); MEAN CORPUSCULAR VOLUME 68 fL (79-100); MONO # 0.8 x10^3/uL (0.0-1.1); MONO % 6 % (0-9); NEUT # 11.8 x10^3/uL (1.8-7.7); NEUT % 79 % (31-73); PLATELET COUNT 305 x10^3/uL (140-400); RED BLOOD COUNT 5.17 x10^6/uL (3.50-5.40); WHITE BLOOD COUNT 14.8 x10^3/uL (4.0-11.0)
--- NOTE | 2021-08-02 10:53 | PHYS DOC ---
Past Medical History Past Medical History: Asthma, Migraines Past Surgical History: Appendectomy, Oophorectomy, Tonsillectomy Additional Past Surgical Histo: ovarian cyst, left ovary Smoking Status: Never Smoker Alcohol Use: None Drug Use: None General Adult EDM: Chief Complaint: ABDOMINAL PAIN HPI: HPI: Patient is a 26 year old female who presents with this morning began having this pain in her right lower quadrant that feels like " laboring" pain. She does have a fever and is tachycardic. Patient is in tears. She is rating her pain a 10 out of 10. She has not taken anything for pain today. Patient has never been diagnosed with PCOS but states she has had surgeries to have ovarian cyst removed 3 times. She also has had her left ovary taken. She states her last menstrual period was 2 months ago but she is not regular and so that is normal for her. Patient has a history of asthma, migraine, appendectomy, to nsillectomy, left ovary removal, ovarian cysts. Review of Systems: Review of Systems: Constitutional: + fever or chills. [] Eyes: Denies change in visual acuity. [] HENT: Denies nasal congestion or sore throat. [] Respiratory: Denies cough or shortness of breath. [] Cardiovascular: Denies chest pain or edema. [] GI: + abdominal pain, +nausea, denies vomiting, bloody stools or diarrhea. [] : Denies dysuria. [] Musculoskeletal: Denies back pain or joint pain. [] Integument: Denies rash. [] Neurologic: Denies headache, focal weakness or sensory changes. [] Endocrine: Denies polyuria or polydipsia. [] Lymphatic: Denies swollen glands. [] Psychiatric: Denies depression or anxiety. [] Heart Score: C/O Chest Pain: No Risk Factors: Risk Factors: DM, Current or recent (<one month) smoker, HTN, HLP, family history of CAD, obesity. Risk Scores: Score 0 - 3: 2.5% MACE over next 6 weeks - Discharge Home Score 4 - 6: 20.3% MACE over next 6 weeks - Admit for Clinical Observation Score 7 - 10: 72.7% MACE over next 6 weeks - Early Invasive Strategies Allergies: Allergies: Allergies Coded Allergies Type Severity Reaction Last Updated Verified No Known Drug Allergies 08/05/15 No Physical Exam: PE: Constitutional: Well developed, well nourished, no acute distress, non-toxic appearance. [] HENT: Normocephalic, atraumatic, bilateral external ears normal, oropharynx moist, no oral exudates, nose normal. [] Eyes: PERRLA, EOMI, conjunctiva normal, no discharge. [] Neck: Normal range of motion, no tenderness, supple, no stridor. [] Cardiovascular:Heart rate tachycardia regular rhythm, no murmur [] Lungs & Thorax: Bilateral breath sounds clear to auscultation. Tachypneic [] Abdomen: Bowel sounds normal, soft, right lower quadrant tenderness, no masses, no pulsatile masses. [] Skin: Warm, dry, no erythema, no rash. [] Back: No tenderness, no CVA tenderness. [] Extremities: No tenderness, no cyanosis, no clubbing, ROM intact, no edema. [] Neurologic: Alert and oriented X 3, normal motor function, normal sensory function, no focal deficits noted. [] Psychologic: Affect normal, judgement normal, mood normal. [] EKG: EKG: [] Radiology/Procedures: Radiology/Procedures: [] Impression: [facility] [address] [place], [place] [id number] IMAGING REPORT Addendum PATIENT: GORDO MELOACCOUNT: [id number] : 1995 LOCATION: ER AGE: 26 SEX: F EXAM STATUS: REG ER ORD. PHYSICIAN: CASSANDRA MARKS APRN REASON: Right lower abdominal pain PROCEDURE: CT ABD PELV W/ IV CONTRST ONLY ADDENDUM ADDENDUM #1 Addendum: This was discussed with the ER and further clinical history is obtained. The patient has had a history of appendectomy therefore this distended structure within the expected region of the appendix is likely secondary to a distended appendiceal stump abutting the right adnexal structures. There is no definite adjacent inflammatory changes around the appendiceal stump therefore stump appendicitis is unlikely. Electronically signed by: Cyndie Rodriguez MD (08/02/2021 12:59 PM) [id number] ORIGINAL REPORT INDICATION: Reason: Right lower abdominal pain / Spl. Instructions: IV omni 300 75 mls / History: COMPARISON: None. TECHNIQUE: Axial CT images were obtained through the abdomen and pelvis with intravenous contrast. One or more of the following individualized dose reduction techniques were utilized for this examination: 1. Automated exposure control; 2. Adjustment of the mA and/or kV according to patient size; 3. Use of iterative reconstruction technique. FINDINGS: Sub-4 mm nodule right lung base. Typically benign in a patient of this age. Vascular: No abdominal aortic aneurysm. Hepatobiliary: Liver is low density which can be seen with fatty infiltration. Prominent in size. Pancreas: No peripancreatic edema. Spleen: Spleen is prominent in size. Renal: No hydronephrosis. Bladder: Decompressed therefore not well evaluated. Wall is prominent. Gastrointestinal: Small fat-containing umbilical hernia. The suspected appendix is coiled on itself which limits evaluation. Proximally the appendix measures up to about 13 mm near its origin and tapers distally. Degenerative changes of spine. Pars defects L5 IMPRESSION: * Limited assessment of the appendix since it is coiled on itself in the right lower quadrant. It does appear dilated near its origin without definitive adjacent inflammatory changes at this time. Would correlate with symptoms since an early appendicitis prior to the development of visualized inflammatory changes could have this appearance but some patients can have a dilated appendix at baseline and therefore these findings are equivocal for appendicitis. If the diagnosis is unclear clinically and further imaging evaluation is desired a follow-up CT could be obtained to assess for further increase in size the appendix or development of more definitive adjacent inflammatory changes which would be more specific for appendicitis. * Liver is low density which can be seen with fatty infiltration. Electronically signed by: Cyndie Rodriguez MD (08/02/2021 12:18 PM) [id number] DICTATED AND SIGNED BY: CYNDIE RODRIGUEZ MD DATE: 08/02/21 1259 CC: CASSANDRA MARKS APRN; NON,STAFF; PAU RENAE DO ~ INDICATION: Reason: Right lower abdominal pain / Spl. Instructions: IV omni 300 75 mls / History: COMPARISON: None. TECHNIQUE: Axial CT images were obtained through the abdomen and pelvis with intravenous contrast. One or more of the following individualized dose reduction techniques were utilized for this examination: 1. Automated exposure control; 2. Adjustment of the mA and/or kV according to patient size; 3. Use of iterative reconstruction technique. FINDINGS: Sub-4 mm nodule right lung base. Typically benign in a patient of this age. Vascular: No abdominal aortic aneurysm. Hepatobiliary: Liver is low density which can be seen with fatty infiltration. Prominent in size. Pancreas: No peripancreatic edema. Spleen: Spleen is prominent in size. Renal: No hydronephrosis. Bladder: Decompressed therefore not well evaluated. Wall is prominent. Gastrointestinal: Small fat-containing umbilical hernia. The suspected appendix is coiled on itself which limits evaluation. Proximally the appendix measures up to about 13 mm near its origin and tapers distally. Degenerative changes of spine. Pars defects L5 IMPRESSION: * Limited assessment of the appendix since it is coiled on itself in the right lower quadrant. It does appear dilated near its origin without definitive adjacent inflammatory changes at this time. Would correlate with symptoms since an early appendicitis prior to the development of visualized inflammatory changes could have this appearance but some patients can have a dilated appendix at baseline and therefore these findings are equivocal for appendicitis. If the diagnosis is unclear clinically and further imaging evaluation is desired a follow-up CT could be obtained to assess for further increase in size the appendix or development of more definitive adjacent inflammatory changes which would be more specific for appendicitis. * Liver is low density which can be seen with fatty infiltration. Electronically signed by: Cyndie Rodriguez MD (08/02/2021 12:18 PM) [id number] DICTATED and SIGNED BY: CYNDIE RODRIGUEZ MD DATE: 08/02/21 [id number] [address] [place] [address] IMAGING REPORT Signed PATIENT: GORDO MELOACCOUNT: [id number] : 1995 LOCATION: ER AGE: 26 SEX: F EXAM STATUS: REG ER ORD. PHYSICIAN: CASSANDRA MARKS APRN REASON: Right lower quad pain, history pcos PROCEDURE: PELVIS W/TV EXAM: Pelvis sonogram. HISTORY: Pain. Polycystic ovary syndrome. TECHNIQUE: Transabdominal and transvaginal sonographic imaging of the pelvis was performed. COMPARISON: 03/25/2017. FINDINGS: The uterus measures 8.5 x 5.2 x 4.7 cm. The endometrial stripe measures 6.5 mm in thickness. The left ovary is surgically absent. The right ovary is normal in size and demonstrate normal blood flow. There is a nabothian cyst within the cervix. There is no pelvic free fluid. IMPRESSION: 1. No acute sonographic finding. 2. Sonographically unremarkable right ovary and surgically absent left ovary. Electronically signed by: Candice Neal MD (08/02/2021 11:51 AM) [id number] DICTATED and SIGNED BY: CANDICE NEAL MD DATE: 08/02/21 [id number] 0 [facility] [address] [place] [address] IMAGING REPORT Signed PATIENT: GORDO MELOACCOUNT: [id number] : 1995 LOCATION: ER AGE: 26 SEX: F EXAM STATUS: REG ER ORD. PHYSICIAN: CASSANDRA MARKS APRN REASON: tachycardia, febrile PROCEDURE: PORTABLE CHEST 1V XR CHEST 1V CLINICAL INDICATIONS: Reason: tachycardia, febrile COMPARISON: None available. Findings: No acute lung infiltrate or pleural effusion or pulmonary edema or lung mass or pneumothorax is seen. The heart size, pulmonary vasculature, mediastinum and both theo are unremarkable given AP magnification. IMPRESSION: No acute radiographic abnormality is seen. Electronically signed by: Nahun De Jesus MD (08/02/2021 11:15 AM) [id number] DICTATED and SIGNED BY: NAHUN DE JESUS MD DATE: 08/02/21 [id number] 0 Course & Med Decision Making: Course & Med Decision Making Pertinent Labs and Imaging studies reviewed. (See chart for details) COVID-19 CRITERIA: The patient was evaluated during the global COVID-19 pandemic, and that diagnosis was suspected/considered upon their initial presentation. Their evaluation, treatment and testing was consistent with current guidelines for patients who present with complaints or symptoms that may be related to COVID-19. See HPI. Alert and oriented x4. Ambulatory steady gait. Speaks in full clear sentences. Right lower quadrant tenderness of the abdomen but otherwise soft. febrile. Morbidly obese. Lungs clear in upper lobes and diminished in lower lobes. Febrile in ED. Skin pink warm and dry. CT abdomen pelvis stated the patient had appendicitis but she does not have an appendix and she does have a scar on her right lower abdomen. She states her appendix was taken when she was 6 years old. Patient is still in severe pain. She does have a white count, tachycardic, fever and a possible UTI although her urine does look slightly contaminated. Patient is gotten 2 L of normal saline a nd Zosyn. Chest x-ray is clear. Pelvic ultrasound shows no acute findings. Spoke to Dr. Cage for admission. He states to also consult surgery on this patient. [] Hilton Disclaimer: Hilton Disclaimer: This electronic medical record was generated, in whole or in part, using a voice recognition dictation system. Departure Departure Impression: Primary Impression: Pyelonephritis Additional Impressions: SIRS (systemic inflammatory response syndrome) Intractable abdominal pain Disposition: ADMITTED INPATIENT Admitting Physician: BERNARDINO Condition: STABLE Referrals: NO PCP (PCP) CASSANDRA MARKS GARMENT SUPERVISOR Aug 02, 2021 10:52
[2021-08-02 10:54] LABS: BACTERIA,URINE FEW /HPF (0-FEW); WBC,URINE 20-40 /HPF (0-4)
[2021-08-02 11:05] LABS: CALCIUM 8.7 mg/dL (8.5-10.1); CREATININE 0.8 mg/dL (0.6-1.0); GFR 85.4; POTASSIUM 3.6 mmol/L (3.5-5.1)
--- NOTE | 2021-08-02 11:17 | RAD ---
XR CHEST 1V CLINICAL INDICATIONS: Reason: tachycardia, febrile COMPARISON: None available. Findings: No acute lung infiltrate or pleural effusion or pulmonary edema or lung mass or pneumothora x is seen. The heart size, pulmonary vasculature, mediastinum and both theo are unremarkable given A P magnification. IMPRESSION: No acute radiographic abnormality is seen. Electronically signed by: Aleksey De Jesus MD (08/02/2021 11:15 AM) [id number]
[2021-08-02 11:20] LABS: ALBUMIN 3.3 g/dL (3.4-5.0); ALBUMIN/GLOBULIN RATIO 0.7 (1.0-1.7); TOTAL BILIRUBIN 0.3 mg/dL (0.2-1.0); TOTAL PROTEIN 8.1 g/dL (6.4-8.2)
--- NOTE | 2021-08-02 11:54 | RAD ---
EXAM: Pelvis sonogram. HISTORY: Pain. Polycystic ovary syndrome. TECHNIQUE: Transabdominal and transvaginal sonographic imaging of the pelvis was performed. COMPARISON: 03/25/2017. FINDINGS: The uterus measures 8.5 x 5.2 x 4.7 cm. The endometrial stripe measures 6.5 mm in thickness . The left ovary is surgically absent. The right ovary is normal in size and demonstrate normal blood flow. There is a nabothian cyst within the cervix. There is no pelvic free fluid. IMPRESSION: 1. No acute sonographic finding. 2. Sonographically unremarkable right ovary and surgically absent left ovary. Electronically signed by: Candice Luevano MD (08/02/2021 11:51 AM) [id number]
[2021-08-02 12:16] LABS: PLT ESTIMATE ADEQUATE (ADEQUATE)
[2021-08-02 12:18] LABS: HYPOCHROMIA SLIGHT; POLYCHROMASIA PRESENT
[2021-08-02 12:19] LABS: ANISOCYTOSIS SLIGHT; MICROCYTOSIS MARKED
--- NOTE | 2021-08-02 12:21 | RAD ---
INDICATION: Reason: Right lower abdominal pain / Spl. Instructions: IV omni 300 75 mls / History: COMPARISON: None. TECHNIQUE: Axial CT images were obtained through the abdomen and pelvis with intravenous contrast. One or more of the following individualized dose reduction techniques were utilized for this examinat ion: 1. Automated exposure control; 2. Adjustment of the mA and/or kV according to patient size; 3 . Use of iterative reconstruction technique. FINDINGS: Sub-4 mm nodule right lung base. Typically benign in a patient of this age. Vascular: No abdominal aortic aneurysm. Hepatobiliary: Liver is low density which can be seen with fatty infiltration. Prominent in size. Pancreas: No peripancreatic edema. Spleen: Spleen is prominent in size. Renal: No hydronephrosis. Bladder: Decompressed therefore not well evaluated. Wall is prominent. Gastrointestinal: Small fat-containing umbilical hernia. The suspected appendix is coiled on itself w hich limits evaluation. Proximally the appendix measures up to about 13 mm near its origin and tapers distally. Degenerative changes of spine. Pars defects L5 IMPRESSION: * Limited assessment of the appendix since it is coiled on itself in the right lower quadrant. It d oes appear dilated near its origin without definitive adjacent inflammatory changes at this time. Wou ld correlate with symptoms since an early appendicitis prior to the development of visualized inflamm atory changes could have this appearance but some patients can have a dilated appendix at baseline an d therefore these findings are equivocal for appendicitis. If the diagnosis is unclear clinically and further imaging evaluation is desired a follow-up CT could be obtained to assess for further increas e in size the appendix or development of more definitive adjacent inflammatory changes which would be more specific for appendicitis. * Liver is low density which can be seen with fatty infiltration. Electronically signed by: David Loomis MD (08/02/2021 12:18 PM) [id number]
[2021-08-02] MEDS ORDERED: PIPERACILLIN/TAZOBACTAM 3.375 GM in IV NORMAL SALINE 50ML 50 ML IV ONE (12:45)
[2021-08-02] MEDS ORDERED: IV NORMAL SALINE 1000ML BAG 1,000 ML IV ONE ×2 (13:00→14:15)
[2021-08-02] MEDS ORDERED: KETOROLAC 30 MG/ML VIAL. IVP ONE (13:30)
--- NOTE | 2021-08-02 13:42 | PDOC1 ---
History and Physical Date of Admission Date of Admission DATE: 08/02/21 TIME: 13:41 Identification/Chief Complaint Chief Complaint fever rlq pain , spuprapubic pain History of Present Illness History of Present Illness 26 year old female who presented with right lower quadrant that feels like " laboring" pain./ fever and tachycardia. rating her pain a 10 out of 10. states she had an appendectomy 20 yrs ago at [facility] AND hx ovarian cyst removed 3 times. She also has had her left ovary taken. Patient has a history of asthma, migraine, appendectomy, tonsillectomy, left ovary removal, ovarian cysts. initial CT diagnosis is unclear clinically BUT UA C/W UTI DOSED WITH ZOSYN X 1 IN ER , surgery consulted wbc 14.8 lactic acid 2.1 plan IV ZOSYN / Procalcitonin /gen surgery opinion /serial exams /urine culture/ blood culture /DVT PROPHYLAXIS Past Medical History Past Medical History Past Medical History Past Medical History: Asthma, Migraines Past Surgical History: Appendectomy, Oophorectomy, Tonsillectomy Additional Past Surgical Histo: ovarian cyst, left ovary Smoking Status: Never Smoker Alcohol Use: None Drug Use: None fhx obesity Cardiovascular: No pertinent hx Pulmonary: No pertinent hx, Asthma GI: No pertinent hx Heme/Onc: No pertinent hx Hepatobiliary: No pertinent hx Psych: No pertinent hx Rheumatologic: No pertinent hx Infectious disease: No pertinent hx Renal/: No pertinent hx Past Surgical History Past Surgical History: Appendectomy, Tonsillectomy, Other Family History Family History: Hypertension Social History Smoke: No ALCOHOL: none Drugs: None Current Problem List Problem List Problems Medical Problems: (1) Pyelonephritis Status: Acute Current Medications Current Medications Current Medications Sodium Chloride 1,000 ml @ 1,000 mls/hr Q1H IV Last administered on 08/02/21at 11:04; Start 08/02/21 at 10:30; Stop 08/02/21 at 11:29; Status DC Fentanyl Citrate (Fentanyl 2ml Vial) 50 mcg 1X ONCE IVP Last administered on 08/02/21at 11:04; Start 08/02/21 at 10:30; Stop 08/02/21 at 10:35; Status DC Ondansetron HCl (Zofran) 4 mg 1X ONCE IVP Last administered on 08/02/21at 11:04; Start 08/02/21 at 10:30; Stop 08/02/21 at 10:35; Status DC Iohexol (Omnipaque 300 Mg/ml) 75 ml 1X ONCE IV Last administered on 08/02/21at 10:45; Start 08/02/21 at 10:45; Stop 08/02/21 at 10:46; Status DC Acetaminophen (Tylenol) 1,000 mg 1X ONCE PO Last administered on 08/02/21at 11:05; Start 08/02/21 at 10:45; Stop 08/02/21 at 10:46; Status DC Info (CONTRAST GIVEN -- Rx MONITORING) 1 each PRN DAILY PRN MC SEE COMMENTS; Start 08/02/21 at 10:45; Stop 08/04/21 at 10:44 Piperacillin Sod/ Tazobactam Sod 3.375 gm/Sodium Chloride 50 ml @ 100 mls/hr 1X ONCE IV Last administered on 08/02/21at 12:30; Start 08/02/21 at 12:45; Stop 08/02/21 at 13:14; Status DC Fentanyl Citrate (Fentanyl 2ml Vial) 50 mcg 1X ONCE IVP Last administered on 08/02/21at 13:30; Start 08/02/21 at 12:45; Stop 08/02/21 at 12:50; Status DC Sodium Chloride 1,000 ml @ 1,000 mls/hr 1X ONCE IV Last administered on 08/02/21at 12:30; Start 08/02/21 at 13:00; Stop 08/02/21 at 13:59 Ketorolac Tromethamine (Toradol 30mg Vial) 30 mg 1X ONCE IVP ; Start 08/02/21 at 13:30; Stop 08/02/21 at 13:31; Status DC Active Scripts Active Augmentin 875-125 Tablet (Amoxicillin/Potassium Clav) 1 Each Tablet 1 Tab PO BID 10 Days Ibuprofen 400 Mg Tablet 800 Mg PO PRN Q8HRS PRN Flagyl (Metronidazole) 500 Mg Tablet 1 Tab PO BID Cyclobenzaprine Hcl 10 Mg Tablet 1 Tab PO TID PRN Shedd 5-325 Tablet (Acetaminophen/Hydrocodone Bitart) 1 Each Tablet 1-2 Tab PO Q4-6HRS Ibuprofen 800 Mg Tablet 800 Mg PO PRN Q6HRS PRN 7 Days Doxycycline Hyclate 100 Mg Capsule 1 Cap PO BID Percocet 5-325 Mg Tablet (Oxycodone/Acetaminophen) 1 Each Tablet 1-2 Tab PO Q4-6HRS Allergies Allergies: Coded Allergies: No Known Drug Allergies (Unverified , 08/02/21) ROS Review of System 14 pt ros otherwise neg General: YES: Chills, Fatigue, Other (fever) PSYCHOLOGICAL ROS: No: Anxiety, Behavioral Disorder, Concentration difficultie, Decreased libido, Depression, Disorientation, Hallucinations, Hostility, Irritablity, Memory difficulties, Mood Swings, Obsessive thoughts, Physical abuse, Sexual abuse, Sleep disturbances, Suicidal ideation, Other Eyes: No Blurry vision, No Decreased vision, No Double vision, No Dry eyes, No Excessive tearing, No Eye Pain, No Itchy Eyes, No Loss of vision, No Photophobia, No Scotomata, No Uses contacts, No Uses glasses, No Other HEENT: No: Heacaches, Visual Changes, Hearing change, Nasal congestion, Nasal discharge, Oral lesions, Sinus pain, Sore Throat, Epistaxis, Sneezing, Snoring, Tinnitus, Vertigo, Vocal changes, Other ALLERGY AND IMMUNOLOGY: No: Hives, Insect Bite Sensitivity, Itchy/Watery Eyes, Nasal Congestion, Post Nasal Drip, Seasonal Allergies, Other Hematological and Lymphatic: No: Bleeding Problems, Blood Clots, Blood Transfusions, Brusing, Night Sweats, Pallor, Swollen Lymph Nodes, Other ENDOCRINE: No: Breast Changes, Galactorrhea, Hair Pattern Changes, Hot Flashes, Malaise/lethargy, Mood Swings, Palpitations, Polydipsia/polyuria, Skin Changes, Temperature Intolerance, Unexpected Weight Changes, Other Breast: No New/Changing Breast Lumps, No Nipple changes, No Nipple discharge, No Other Respiratory: No: Cough, Hemoptysis, Orthopnea, Pleuritic Pain, Shortness of breath, SOB with excertion, Sputum Changes, Stridor, Tachypnea, Wheezing, Other Cardiovascular: No Chest Pain, No Palpitations, No Orthopnea, No Paroxysmal Noc. Dyspnea, No Edema, No Lt Headedness, No Other Gastrointestinal: Yes Nausea, Yes Abdominal Pain; No Vomiting, No Diarrhea, No Constipation, No Melena, No Hematochezia, No Other Genitourinary: YES Dysuria; No Frequency, No Incontinence, No Hematuria, No Retention, No Discharge, No Urgency, No Pain, No Flank Pain, No Other, No , No , No , No , No , No , No Musculoskeletal: No Gait Disturbance, No Joint Pain, No Joint Stiffness, No Joint Swelling, No Muscle Pain, No Muscular Weakness, No Pain In:, No Swelling In:, No Other Neurological: No Behavorial Changes, No Bowel/Bladder ControlChng, No Confusion, No Dizziness, No Gait Disturbance, No Headaches, No Impaired Coord/balance, No Memory Loss, No Numbness/Tingling, No Seizures, No Speech Problems, No Tremors, No Visual Changes, No Weakness, No Other Skin: No Dry Skin, No Eczema, No Hair Changes, No Lumps, No Mole Changes, No Mottling, No Nail Changes, No Pruritus, No Rash, No Skin Lesion Changes, No Other, No Acne Physical Exam General: Alert, Oriented X3, Cooperative, No acute distress, mild distress HEENT: Atraumatic, PERRLA, EOMI, Mucous membr. moist/pink Lungs: Clear to auscultation, Normal air movement Heart: RRR, no thrills, no gallops Breasts: Not examined Abdomen: Normal bowel sounds, Other (mild suprapubic tenderness) Rectal Exam: not examined Extremities: No cyanosis Skin: No rashes Neuro: Normal speech, Strength at 5/5 X4 ext, Cranial nerves 3-12 NL Psych/Mental Status: Mental status NL, Mood NL Vitals Vitals Vital Signs Date Time Temp Pulse Resp B/P (MAP) Pulse Ox O2 Delivery O2 Flow Rate FiO2 08/02/21 12:21 104 132/72 (92) 98 Room Air 08/02/21 10:25 100.2 28 100.2 Labs Labs Laboratory Tests Test 08/02/21 10:20 08/02/21 10:36 08/02/21 10:39 08/02/21 12:24 Urine Collection Type Void Urine Color Yellow Urine Clarity Clear Urine pH 7.0 (<5.0-8.0) Urine Specific [place] 1.025 (1.000-1.030) Urine Protein Trace mg/dL (NEG-TRACE) Urine Glucose (UA) Negative mg/dL (NEG) Urine Ketones (Stick) Negative mg/dL (NEG) Urine Blood Negative (NEG) Urine Nitrite Negative (NEG) Urine Bilirubin Negative (NEG) Urine Urobilinogen Dipstick 0.2 mg/dL (0.2 mg/dL) Urine Leukocyte Esterase Small (NEG) Urine RBC 3-5 /HPF (0-2) Urine WBC 20-40 /HPF (0-4) Urine Squamous Epithelial Cells Many /LPF Urine Bacteria Few /HPF (0-FEW) Urine Mucus Slight /LPF Bedside Urine HCG, Qualitative Hcg negative (Negative) White Blood Count 14.8 x10^3/uL (4.0-11.0) Red Blood Count 5.17 x10^6/uL (3.50-5.40) Hemoglobin 11.4 g/dL (12.0-15.5) Hematocrit 35.2 % (36.0-47.0) Mean Corpuscular Volume 68 fL (79-100) Mean Corpuscular Hemoglobin 22 pg (25-35) Mean Corpuscular Hemoglobin Concent 32 g/dL (31-37) Red Cell Distribution Width 16.0 % (11.5-14.5) Platelet Count 305 x10^3/uL (140-400) Neutrophils (%) (Auto) 79 % (31-73) Lymphocytes (%) (Auto) 13 % (24-48) Monocytes (%) (Auto) 6 % (0-9) Eosinophils (%) (Auto) 1 % (0-3) Basophils (%) (Auto) 1 % (0-3) Neutrophils # (Auto) 11.8 x10^3/uL (1.8-7.7) Lymphocytes # (Auto) 1.9 x10^3/uL (1.0-4.8) Monocytes # (Auto) 0.8 x10^3/uL (0.0-1.1) Eosinophils # (Auto) 0.2 x10^3/uL (0.0-0.7) Basophils # (Auto) 0.1 x10^3/uL (0.0-0.2) Platelet Estimate Adequate (ADEQUATE) Polychromasia Present Hypochromasia Slight Anisocytosis Slight Microcytosis Marked Sodium Level 138 mmol/L (136-145) Potassium Level 3.6 mmol/L (3.5-5.1) Chloride Level 102 mmol/L (98-107) Carbon Dioxide Level 26 mmol/L (21-32) Anion Gap 10 (6-14) Blood Urea Nitrogen 10 mg/dL (7-20) Creatinine 0.8 mg/dL (0.6-1.0) Estimated GFR (Cockcroft-Gault) 85.4 BUN/Creatinine Ratio 13 (6-20) Glucose Level 161 mg/dL (70-99) Lactic Acid Level 2.1 mmol/L (0.4-2.0) Calcium Level 8.7 mg/dL (8.5-10.1) Total Bilirubin 0.3 mg/dL (0.2-1.0) Aspartate Amino Transf (AST/SGOT) 50 U/L (15-37) Alanine Aminotransferase (ALT/SGPT) 65 U/L (14-59) Alkaline Phosphatase 136 U/L (46-116) Total Protein 8.1 g/dL (6.4-8.2) Albumin 3.3 g/dL (3.4-5.0) Albumin/Globulin Ratio 0.7 (1.0-1.7) Lipase 118 U/L (73-393) SARS-CoV-2 Antigen (Rapid) Negative (NEGATIVE) Laboratory Tests Test 08/02/21 10:20 08/02/21 10:36 08/02/21 10:39 08/02/21 12:24 Urine Collection Type Void Urine Color Yellow Urine Clarity Clear Urine pH 7.0 (<5.0-8.0) Urine Specific [place] 1.025 (1.000-1.030) Urine Protein Trace mg/dL (NEG-TRACE) Urine Glucose (UA) Negative mg/dL (NEG) Urine Ketones (Stick) Negative mg/dL (NEG) Urine Blood Negative (NEG) Urine Nitrite Negative (NEG) Urine Bilirubin Negative (NEG) Urine Urobilinogen Dipstick 0.2 mg/dL (0.2 mg/dL) Urine Leukocyte Esterase Small (NEG) Urine RBC 3-5 /HPF (0-2) Urine WBC 20-40 /HPF (0-4) Urine Squamous Epithelial Cells Many /LPF Urine Bacteria Few /HPF (0-FEW) Urine Mucus Slight /LPF Bedside Urine HCG, Qualitative Hcg negative (Negative) White Blood Count 14.8 x10^3/uL (4.0-11.0) Red Blood Count 5.17 x10^6/uL (3.50-5.40) Hemoglobin 11.4 g/dL (12.0-15.5) Hematocrit 35.2 % (36.0-47.0) Mean Corpuscular Volume 68 fL (79-100) Mean Corpuscular Hemoglobin 22 pg (25-35) Mean Corpuscular Hemoglobin Concent 32 g/dL (31-37) Red Cell Distribution Width 16.0 % (11.5-14.5) Platelet Count 305 x10^3/uL (140-400) Neutrophils (%) (Auto) 79 % (31-73) Lymphocytes (%) (Auto) 13 % (24-48) Monocytes (%) (Auto) 6 % (0-9) Eosinophils (%) (Auto) 1 % (0-3) Basophils (%) (Auto) 1 % (0-3) Neutrophils # (Auto) 11.8 x10^3/uL (1.8-7.7) Lymphocytes # (Auto) 1.9 x10^3/uL (1.0-4.8) Monocytes # (Auto) 0.8 x10^3/uL (0.0-1.1) Eosinophils # (Auto) 0.2 x10^3/uL (0.0-0.7) Basophils # (Auto) 0.1 x10^3/uL (0.0-0.2) Platelet Estimate Adequate (ADEQUATE) Polychromasia Present Hypochromasia Slight Anisocytosis Slight Microcytosis Marked Sodium Level 138 mmol/L (136-145) Potassium Level 3.6 mmol/L (3.5-5.1) Chloride Level 102 mmol/L (98-107) Carbon Dioxide Level 26 mmol/L (21-32) Anion Gap 10 (6-14) Blood Urea Nitrogen 10 mg/dL (7-20) Creatinine 0.8 mg/dL (0.6-1.0) Estimated GFR (Cockcroft-Gault) 85.4 BUN/Creatinine Ratio 13 (6-20) Glucose Level 161 mg/dL (70-99) Lactic Acid Level 2.1 mmol/L (0.4-2.0) Calcium Level 8.7 mg/dL (8.5-10.1) Total Bilirubin 0.3 mg/dL (0.2-1.0) Aspartate Amino Transf (AST/SGOT) 50 U/L (15-37) Alanine Aminotransferase (ALT/SGPT) 65 U/L (14-59) Alkaline Phosphatase 136 U/L (46-116) Total Protein 8.1 g/dL (6.4-8.2) Albumin 3.3 g/dL (3.4-5.0) Albumin/Globulin Ratio 0.7 (1.0-1.7) Lipase 118 U/L (73-393) SARS-CoV-2 Antigen (Rapid) Negative (NEGATIVE) Images Images PATIENT: GORDO MELOACCOUNT: [id number] : 1995 LOCATION: ER AGE: 26 SEX: F EXAM STATUS: REG ER ORD. PHYSICIAN: CASSANDRA MARKS APRN REASON: Right lower quad pain, history pcos PROCEDURE: PELVIS W/TV EXAM: Pelvis sonogram. HISTORY: Pain. Polycystic ovary syndrome. TECHNIQUE: Transabdominal and transvaginal sonographic imaging of the pelvis was performed. COMPARISON: 03/25/2017. FINDINGS: The uterus measures 8.5 x 5.2 x 4.7 cm. The endometrial stripe me asures 6.5 mm in thickness. The left ovary is surgically absent. The right ovary is normal in size and demonstrate normal blood flow. There is a nabothian cyst within the cervix. There is no pelvic free fluid. IMPRESSION: 1. No acute sonographic finding. 2. Sonographically unremarkable right ovary and surgically absent left ovary. Electronically signed by: Candice Neal MD (08/02/2021 11:51 AM) [id number] DICTATED and SIGNED BY: CANDICE NEAL MD DATE: 08/02/21 [id number] INDICATION: Reason: Right lower abdominal pain / Spl. Instructions: IV omni 300 75 mls / History: COMPARISON: None. TECHNIQUE: Axial CT images were obtained through the abdomen and pelvis with intravenous contrast. One or more of the following individualized dose reduction techniques were utilized for this examination: 1. Automated exposure control; 2. Adjustment of the mA and/or kV according to patient size; 3. Use of iterative reconstruction technique. FINDINGS: Sub-4 mm nodule right lung base. Typically benign in a patient of this age. Vascular: No abdominal aortic aneurysm. Hepatobiliary: Liver is low density which can be seen with fatty infiltration. Prominent in size. Pancreas: No peripancreatic edema. Spleen: Spleen is prominent in size. Renal: No hydronephrosis. Bladder: Decompressed therefore not well evaluated. Wall is prominent. Gastrointestinal: Small fat-containing umbilical hernia. The suspected appendix is coiled on itself which limits evaluation. Proximally the appendix measures up to about 13 mm near its origin and tapers distally. Degenerative changes of spine. Pars defects L5 IMPRESSION: * Limited assessment of the appendix since it is coiled on itself in the right lower quadrant. It does appear dilated near its origin without definitive adjacent inflammatory changes at this time. Would correlate with symptoms since an early appendicitis prior to the development of visualized inflammatory changes could have this appearance but some patients can have a dilated appendix at baseline and therefore these findings are equivocal for appendicitis. If the diagnosis is unclear clinically and further imaging evaluation is desired a follow-up CT could be obtained to assess for further increase in size the appendix or development of more definitive adjacent inflammatory changes which would be more specific for appendicitis. * Liver is low density which can be seen with fatty infiltration. Electronically signed by: Cyndie Rodriguez MD (08/02/2021 12:18 PM) [id number] DICTATED and SIGNED BY: CYNDIE RODRIGUEZ MD DATE: 08/02/21 [id number] VTE Prophylaxis Ordered VTE Prophylaxis Devices: No VTE Pharmacological Prophylaxi: No Assessment/Plan Assessment/Plan Impression: Pyelonephritis rlq, suprapubic pain, ABNORMAL ct // initial CT diagnosis is unclear clinically BUT UA C/W UTI SIRS (systemic inflammatory response syndrome) Intractable abdominal pain Morbid obesity ADMITTED NPO IV FLUID SUPPORT IV ZOSYN Procalcitonin gen surgery opinion serial exams urine culture blood culture DVT PROPHYLAXIS D/W ER Justifications for Admission Other Justification JULY LOPEZ MD Aug 02, 2021 13:42
[2021-08-02] MEDS ORDERED: ONDANSETRON PF 4 MG/2 ML VIAL. IVP PRN (13:45)
[2021-08-02] MEDS ORDERED: fentaNYL PF VIAL 100 MCG/2 ML VIAL IVP PRN ×2 (13:45→14:30)
[2021-08-02] MEDS ORDERED: PIP/TAZO PER PHARMACY MC PRN (13:45)
[2021-08-02] MEDS ORDERED: ACETAMINOPHEN 325 MG TABLET. PO PRN (13:45)
[2021-08-02] MEDS ORDERED: ONDANSETRON PF 4 MG/2 ML VIAL. IV PRN (14:15)
[2021-08-02] MEDS ORDERED: ALBUTEROL SULFATE 2.5 MG/3 ML NEBU. NEB PRN (14:15)
[2021-08-02] MEDS ORDERED: guaiFENesin ORAL 200 MG/10 ML LIQUID. PO PRN (14:15)
[2021-08-02] MEDS ORDERED: SODIUM PHOSPHATES 19/7GM 133 ML ENEMA. PR PRN (14:15)
[2021-08-02] MEDS ORDERED: ACETAMINOPHEN 650 MG SUPP.RECT. PR PRN (14:15)
[2021-08-02] MEDS ORDERED: 0.9 % SODIUM CHLORIDE 10 ML DISP.SYRIN. IV PRN (14:15)
[2021-08-02] MEDS ORDERED: IV NORMAL SALINE 1000ML BAG 1,650 ML IV SCH (14:30)
[2021-08-02] MEDS ORDERED: IV NORMAL SALINE 500ML BAG 500 ML IV PRN (14:30)
[2021-08-02] MEDS ORDERED: hydrALAZINE 20 MG/ML VIAL. IVP PRN (14:30)
[2021-08-02 15:17] LABS: PROTHROMBIN TIME PATIENT 13.7 SEC (11.7-14.0)
[2021-08-02 15:23] LABS: D-DIMER 0.54 ug/mlFEU (0.00-0.50)
[2021-08-02 16:50] VITALS: BP 128/92
[2021-08-02] MEDS ORDERED: ALBU2.5V8 IH (17:12)
[2021-08-02] MEDS: PIPERACILLIN/TAZOBACTAM 3.375 GM in IV NORMAL SALINE 50ML 50 ML IV SCH (17:52)
[2021-08-02 19:00] VITALS: BP 139/77
--- NOTE | 2021-08-02 19:56 | PDOC2 ---
CONSULT Date of Consult Date of Consult DATE: 08/02/21 TIME: 19:45 Reason for Consult Reason for Consult: abd pain Referring Physician Referring Physician: Dr. Cage Identification/Chief Complaint Chief Complaint RLQ abd pain Source Source: Chart review, Patient History of Present Illness Reason for Visit: 26 yo F with c/o RLQ and periumbilical pain. No previous episodes. Pt denies previous episodes. Reports having open appendectomy at age 7-8. Pt seen in ER. Past Medical History Cardiovascular: No pertinent hx Pulmonary: No pertinent hx, Asthma GI: No pertinent hx Heme/Onc: No pertinent hx Hepatobiliary: No pertinent hx Psych: No pertinent hx Rheumatologic: No pertinent hx Infectious disease: No pertinent hx Renal/: No pertinent hx Past Surgical History Past Surgical History: Appendectomy, Tonsillectomy, Other Family History Family History: Hypertension Social History No ALCOHOL: none Drugs: None Current Problem List Problem List Problems Medical Problems: (1) Intractable abdominal pain Status: Acute (2) Pyelonephritis Status: Acute (3) SIRS (systemic inflammatory response syndrome) Status: Acute Current Medications Current Medications Current Medications Sodium Chloride 1,000 ml @ 1,000 mls/hr Q1H IV Last administered on 08/02/21at 11:04; Start 08/02/21 at 10:30; Stop 08/02/21 at 11:29; Status DC Fentanyl Citrate (Fentanyl 2ml Vial) 50 mcg 1X ONCE IVP Last administered on 08/02/21at 11:04; Start 08/02/21 at 10:30; Stop 08/02/21 at 10:35; Status DC Ondansetron HCl (Zofran) 4 mg 1X ONCE IVP Last administered on 08/02/21at 11:04; Start 08/02/21 at 10:30; Stop 08/02/21 at 10:35; Status DC Iohexol (Omnipaque 300 Mg/ml) 75 ml 1X ONCE IV Last administered on 08/02/21at 10:45; Start 08/02/21 at 10:45; Stop 08/02/21 at 10:46; Status DC Acetaminophen (Tylenol) 1,000 mg 1X ONCE PO Last administered on 08/02/21at 11:05; Start 08/02/21 at 10:45; Stop 08/02/21 at 10:46; Status DC Info (CONTRAST GIVEN -- Rx MONITORING) 1 each PRN DAILY PRN MC SEE COMMENTS; Start 08/02/21 at 10:45; Stop 08/04/21 at 10:44 Piperacillin Sod/ Tazobactam Sod 3.375 gm/Sodium Chloride 50 ml @ 100 mls/hr 1X ONCE IV Last administered on 08/02/21at 12:30; Start 08/02/21 at 12:45; Stop 08/02/21 at 13:14; Status DC Fentanyl Citrate (Fentanyl 2ml Vial) 50 mcg 1X ONCE IVP Last administered on 08/02/21at 13:30; Start 08/02/21 at 12:45; Stop 08/02/21 at 12:50; Status DC Sodium Chloride 1,000 ml @ 1,000 mls/hr 1X ONCE IV Last administered on 08/02/21at 12:30; Start 08/02/21 at 13:00; Stop 08/02/21 at 13:59; Status DC Ketorolac Tromethamine (Toradol 30mg Vial) 30 mg 1X ONCE IVP Last administered on 08/02/21at 14:10; Start 08/02/21 at 13:30; Stop 08/02/21 at 13:31; Status DC Ondansetron HCl (Zofran) 4 mg PRN Q8HRS PRN IVP NAUSEA/VOMITING; Start 08/02/21 at 13:45; Stop 08/03/21 at 13:44 Fentanyl Citrate (Fentanyl 2ml Vial) 50 mcg PRN Q1HR PRN IVP PAIN Last administered on 08/02/21at 16:18; Start 08/02/21 at 13:45; Stop 08/03/21 at 13:44 Acetaminophen (Tylenol) 650 mg PRN Q4HRS PRN PO FEVER > 100.3'F; Start 08/02/21 at 13:45; Stop 08/03/21 at 13:44 Sodium Chloride 1,000 ml @ 100 mls/hr 1X ONCE IV Last administered on 08/02/21at 14:43; Start 08/02/21 at 14:15; Stop 08/03/21 at 00:14 Piperacillin Sod/ Tazobactam Sod (Zosyn Per Pharmacy) 1 each PRN DAILY PRN MC SEE COMMENTS; Start 08/02/21 at 13:45 Sodium Chloride (Normal Saline Flush) 3 ml QSHIFT PRN IV AFTER MEDS AND BLOOD DRAWS; Start 08/02/21 at 14:15 Sodium Chloride 1,000 ml @ 140 mls/hr Q7H9M IV ; Start 08/02/21 at 14:15 Ondansetron HCl (Zofran) 4 mg PRN Q4HRS PRN IV NAUSEA/VOMITING Last administered on 08/02/21at 17:52; Start 08/02/21 at 14:15 Acetaminophen (Tylenol Supp) 650 mg PRN Q4HRS PRN OK TEMP OVER 100.4F OR MILD PAIN; Start 08/02/21 at 14:15 Sodium Monofluorophosphate (Fleet Adult) 133 ml PRN DAILY PRN OK CONSTIPATION; Start 08/02/21 at 14:15 Albuterol Sulfate (Ventolin Neb Soln) 2.5 mg PRN Q4HRS PRN NEB SHORTNESS OF BREATH; Start 08/02/21 at 14:15 Guaifenesin (Robitussin) 200 mg PRN Q4HRS PRN PO COUGH; Start 08/02/21 at 14:15 Enoxaparin Sodium (Lovenox 40mg Syringe) 40 mg BID SQ ; Start 08/02/21 at 21:00; Status Cancel Enoxaparin Sodium (Lovenox 60mg Syringe) 60 mg Q12HR SQ ; Start 08/02/21 at 21:00 Fentanyl Citrate (Fentanyl 2ml Vial) 50 mcg PRN Q3HRS PRN IVP SEVERE PAIN 7-10; Start 08/02/21 at 14:30 Hydralazine HCl (Apresoline Inj) 10 mg PRN Q4HRS PRN IVP ELEVATED BP, SEE COMMENTS; Start 08/02/21 at 14:30 Sodium Chloride 1,650 ml @ 1,650 mls/hr Q1H IV ; Start 08/02/21 at 14:30 Sodium Chloride 500 ml @ 1,000 mls/hr PRN Q30MIN PRN IV SEE COMMENTS; Start 08/02/21 at 14:30 Piperacillin Sod/ Tazobactam Sod 3.375 gm/Sodium Chloride 50 ml @ 100 mls/hr Q6HRS IV Last administered on 08/02/21at 17:52; Start 08/02/21 at 18:00 Active Scripts Active Reported Proair Hfa Inhaler (Albuterol Sulfate) 8.5 Gm Hfa.aer.ad 2 Puff IH PRN Q4-6HRS PRN 21 Days Allergies Allergies: Coded Allergies: No Known Drug Allergies (Unverified , 08/02/21) ROS Gastrointestinal: Yes Abdominal Pain Physical Exam General: Alert, Oriented X3, Cooperative, mild distress HEENT: Atraumatic Lungs: Normal air movement Abdomen: Soft, No masses (se), Other (obese, mild TTP diffusely, well healed incision RLQ) Extremities: No clubbing, No cyanosis Skin: No rashes, No breakdown Neuro: Normal speech, Sensation intact Psych/Mental Status: Mental status NL, Mood NL Vitals VITALS Vital Signs Date Time Temp Pulse Resp B/P (MAP) Pulse Ox O2 Delivery O2 Flow Rate FiO2 08/02/21 17:24 Room Air 08/02/21 16:50 99.2 92 18 128/92 (104) 94 99.2 Labs Labs Laboratory Tests Test 08/02/21 10:20 08/02/21 10:36 08/02/21 10:39 08/02/21 12:24 Urine Collection Type Void Urine Color Yellow Urine Clarity Clear Urine pH 7.0 (<5.0-8.0) Urine Specific [place] 1.025 (1.000-1.030) Urine Protein Trace mg/dL (NEG-TRACE) Urine Glucose (UA) Negative mg/dL (NEG) Urine Ketones (Stick) Negative mg/dL (NEG) Urine Blood Negative (NEG) Urine Nitrite Negative (NEG) Urine Bilirubin Negative (NEG) Urine Urobilinogen Dipstick 0.2 mg/dL (0.2 mg/dL) Urine Leukocyte Esterase Small (NEG) Urine RBC 3-5 /HPF (0-2) Urine WBC 20-40 /HPF (0-4) Urine Squamous Epithelial Cells Many /LPF Urine Bacteria Few /HPF (0-FEW) Urine Mucus Slight /LPF Bedside Urine HCG, Qualitative Hcg negative (Negative) White Blood Count 14.8 x10^3/uL (4.0-11.0) Red Blood Count 5.17 x10^6/uL (3.50-5.40) Hemoglobin 11.4 g/dL (12.0-15.5) Hematocrit 35.2 % (36.0-47.0) Mean Corpuscular Volume 68 fL (79-100) Mean Corpuscular Hemoglobin 22 pg (25-35) Mean Corpuscular Hemoglobin Concent 32 g/dL (31-37) Red Cell Distribution Width 16.0 % (11.5-14.5) Platelet Count 305 x10^3/uL (140-400) Neutrophils (%) (Auto) 79 % (31-73) Lymphocytes (%) (Auto) 13 % (24-48) Monocytes (%) (Auto) 6 % (0-9) Eosinophils (%) (Auto) 1 % (0-3) Basophils (%) (Auto) 1 % (0-3) Neutrophils # (Auto) 11.8 x10^3/uL (1.8-7.7) Lymphocytes # (Auto) 1.9 x10^3/uL (1.0-4.8) Monocytes # (Auto) 0.8 x10^3/uL (0.0-1.1) Eosinophils # (Auto) 0.2 x10^3/uL (0.0-0.7) Basophils # (Auto) 0.1 x10^3/uL (0.0-0.2) Platelet Estimate Adequate (ADEQUATE) Polychromasia Present Hypochromasia Slight Anisocytosis Slight Microcytosis Marked Sodium Level 138 mmol/L (136-145) Potassium Level 3.6 mmol/L (3.5-5.1) Chloride Level 102 mmol/L (98-107) Carbon Dioxide Level 26 mmol/L (21-32) Anion Gap 10 (6-14) Blood Urea Nitrogen 10 mg/dL (7-20) Creatinine 0.8 mg/dL (0.6-1.0) Estimated GFR (Cockcroft-Gault) 85.4 BUN/Creatinine Ratio 13 (6-20) Glucose Level 161 mg/dL (70-99) Lactic Acid Level 2.1 mmol/L (0.4-2.0) Calcium Level 8.7 mg/dL (8.5-10.1) Total Bilirubin 0.3 mg/dL (0.2-1.0) Aspartate Amino Transf (AST/SGOT) 50 U/L (15-37) Alanine Aminotransferase (ALT/SGPT) 65 U/L (14-59) Alkaline Phosphatase 136 U/L (46-116) Total Protein 8.1 g/dL (6.4-8.2) Albumin 3.3 g/dL (3.4-5.0) Albumin/Globulin Ratio 0.7 (1.0-1.7) Lipase 118 U/L (73-393) SARS-CoV-2 Antigen (Rapid) Negative (NEGATIVE) Test 08/02/21 14:10 08/02/21 14:51 Lactic Acid Level 1.4 mmol/L (0.4-2.0) Prothrombin Time 13.7 SEC (11.7-14.0) Prothromb Time International Ratio 1.1 (0.8-1.1) Activated Partial Thromboplast Time 24 SEC (24-38) Fibrinogen 858 mg/dL (200-440) D-Dimer (Gaby) 0.54 ug/mlFEU (0.00-0.50) Laboratory Tests Test 08/02/21 10:20 08/02/21 10:36 08/02/21 10:39 08/02/21 12:24 Urine Collection Type Void Urine Color Yellow Urine Clarity Clear Urine pH 7.0 (<5.0-8.0) Urine Specific [place] 1.025 (1.000-1.030) Urine Protein Trace mg/dL (NEG-TRACE) Urine Glucose (UA) Negative mg/dL (NEG) Urine Ketones (Stick) Negative mg/dL (NEG) Urine Blood Negative (NEG) Urine Nitrite Negative (NEG) Urine Bilirubin Negative (NEG) Urine Urobilinogen Dipstick 0.2 mg/dL (0.2 mg/dL) Urine Leukocyte Esterase Small (NEG) Urine RBC 3-5 /HPF (0-2) Urine WBC 20-40 /HPF (0-4) Urine Squamous Epithelial Cells Many /LPF Urine Bacteria Few /HPF (0-FEW) Urine Mucus Slight /LPF Bedside Urine HCG, Qualitative Hcg negative (Negative) White Blood Count 14.8 x10^3/uL (4.0-11.0) Red Blood Count 5.17 x10^6/uL (3.50-5.40) Hemoglobin 11.4 g/dL (12.0-15.5) Hematocrit 35.2 % (36.0-47.0) Mean Corpuscular Volume 68 fL (79-100) Mean Corpuscular Hemoglobin 22 pg (25-35) Mean Corpuscular Hemoglobin Concent 32 g/dL (31-37) Red Cell Distribution Width 16.0 % (11.5-14.5) Platelet Count 305 x10^3/uL (140-400) Neutrophils (%) (Auto) 79 % (31-73) Lymphocytes (%) (Auto) 13 % (24-48) Monocytes (%) (Auto) 6 % (0-9) Eosinophils (%) (Auto) 1 % (0-3) Basophils (%) (Auto) 1 % (0-3) Neutrophils # (Auto) 11.8 x10^3/uL (1.8-7.7) Lymphocytes # (Auto) 1.9 x10^3/uL (1.0-4.8) Monocytes # (Auto) 0.8 x10^3/uL (0.0-1.1) Eosinophils # (Auto) 0.2 x10^3/uL (0.0-0.7) Basophils # (Auto) 0.1 x10^3/uL (0.0-0.2) Platelet Estimate Adequate (ADEQUATE) Polychromasia Present Hypochromasia Slight Anisocytosis Slight Microcytosis Marked Sodium Level 138 mmol/L (136-145) Potassium Level 3.6 mmol/L (3.5-5.1) Chloride Level 102 mmol/L (98-107) Carbon Dioxide Level 26 mmol/L (21-32) Anion Gap 10 (6-14) Blood Urea Nitrogen 10 mg/dL (7-20) Creatinine 0.8 mg/dL (0.6-1.0) Estimated GFR (Cockcroft-Gault) 85.4 BUN/Creatinine Ratio 13 (6-20) Glucose Level 161 mg/dL (70-99) Lactic Acid Level 2.1 mmol/L (0.4-2.0) Calcium Level 8.7 mg/dL (8.5-10.1) Total Bilirubin 0.3 mg/dL (0.2-1.0) Aspartate Amino Transf (AST/SGOT) 50 U/L (15-37) Alanine Aminotransferase (ALT/SGPT) 65 U/L (14-59) Alkaline Phosphatase 136 U/L (46-116) Total Protein 8.1 g/dL (6.4-8.2) Albumin 3.3 g/dL (3.4-5.0) Albumin/Globulin Ratio 0.7 (1.0-1.7) Lipase 118 U/L (73-393) SARS-CoV-2 Antigen (Rapid) Negative (NEGATIVE) Test 08/02/21 14:10 08/02/21 14:51 Lactic Acid Level 1.4 mmol/L (0.4-2.0) Prothrombin Time 13.7 SEC (11.7-14.0) Prothromb Time International Ratio 1.1 (0.8-1.1) Activated Partial Thromboplast Time 24 SEC (24-38) Fibrinogen 858 mg/dL (200-440) D-Dimer (Gaby) 0.54 ug/mlFEU (0.00-0.50) Images Images No obvious abnormality by imaging Assessment/Plan Assessment/Plan abd pain, favor urinary source agree with abx. no surgical plans currently. Morbid obesity would make surgery difficult Thanks for consult! JAYCOB ORTEZ MD Aug 02, 2021 19:56
[2021-08-02] MEDS ORDERED: ENOXAPARIN 40 MG/0.4 ML SYRINGE. SQ SCH (21:00)
[2021-08-02 23:00] VITALS: BP 144/84
[2021-08-03] MEDS: PIPERACILLIN/TAZOBACTAM 3.375 GM in IV NORMAL SALINE 50ML 50 ML IV SCH ×3 (00:25→12:59)
[2021-08-03 03:00] VITALS: BP 132/74
[2021-08-03 06:29] LABS: BASO % 0 % (0-3); EOS # 0.2 x10^3/uL (0.0-0.7); EOS % 3 % (0-3); HEMATOCRIT 30.9 % (36.0-47.0); HEMOGLOBIN 10.3 g/dL (12.0-15.5); LYMPH # 1.9 x10^3/uL (1.0-4.8); LYMPH % 26 % (24-48); MEAN CORPUSCULAR HEMOGLOBIN 23 pg (25-35); MEAN CORPUSCULAR HGB CONC 33 g/dL (31-37); MEAN CORPUSCULAR VOLUME 70 fL (79-100); MONO # 0.6 x10^3/uL (0.0-1.1); MONO % 7 % (0-9); NEUT # 4.8 x10^3/uL (1.8-7.7); NEUT % 64 % (31-73); PLATELET COUNT 245 x10^3/uL (140-400); RED BLOOD COUNT 4.44 x10^6/uL (3.50-5.40); RED CELL DISTRIBUTION WIDTH 15.7 % (11.5-14.5); WHITE BLOOD COUNT 7.4 x10^3/uL (4.0-11.0)
[2021-08-03 06:46] LABS: CALCIUM 8.6 mg/dL (8.5-10.1); CREATININE 0.7 mg/dL (0.6-1.0); GFR 99.6; POTASSIUM 3.6 mmol/L (3.5-5.1)
[2021-08-03 06:52] LABS: ALBUMIN 2.7 g/dL (3.4-5.0); ALBUMIN/GLOBULIN RATIO 0.6 (1.0-1.7); TOTAL BILIRUBIN 0.5 mg/dL (0.2-1.0); TOTAL PROTEIN 6.9 g/dL (6.4-8.2)
[2021-08-03 07:00] VITALS: BP 138/81
--- NOTE | 2021-08-03 08:15 | PDOC ---
[employer] PROGRESS NOTE Date of Service DOS: DATE: 08/03/21 TIME: 08:07 Chief Complaint Chief Complaint A/P: RLQ, suprapubic pain, ABNORMAL ct // initial CT diagnosis is unclear clinically possibly with appendiceal stump inflammation, colitis, improved with antibiotics Sepsis - with tachycardia, leukocytosis, abdominal infection Intractable abdominal pain Morbid obesity Pyelonephritis History of Present Illness History of Present Illness Ms Lyn is a 26 year old female w/ PMHx asthma, migraines, appendectomy, left oophorectomy, morbid obesity who presented to ED c/o intractable right lower quadrant pain she compares to labor pains. Has associated fever and tachycardia. rating her pain a [address] abdomen pelvis with enlarged appendiceal stump. No obstructing urinary calculus noted. UA consistent with UTI, WBC 16. DOSED WITH ZOSYN X 1 IN ER , surgery consulted wbc 14.8 lactic acid 2.1 08/03: WBC 7.4, LFTs normalized, lactate down to 1.4, rapid COVID-19 negative. Pain is much better controlled. Urine culture with no growth. discussed possibly near appendix colitis. No family history of crohns or UC. She is anxious to advance diet and go home as she has a 1 year old at home Vitals/I&O Vitals/I&O: Vital Signs Date Time Temp Pulse Resp B/P (MAP) Pulse Ox O2 Delivery O2 Flow Rate FiO2 08/03/21 07:56 Room Air 08/03/21 07:00 98.1 72 16 138/81 (100) 95 98.1 I & O 08/02/21 08/02/21 08/03/21 15:00 23:00 07:00 Intake Total 250 ml Balance 250 ml Physical Exam General: Alert, Oriented X3, Cooperative, mild distress Abdomen: Soft, No masses (se), Other (obese, mild TTP diffusely, well healed incision RLQ) Extremities: No clubbing, No cyanosis Skin: No rashes, No breakdown Labs Labs: Laboratory Tests Test 08/02/21 10:20 08/02/21 10:36 08/02/21 10:39 08/02/21 12:24 Urine Collection Type Void Urine Color Yellow Urine Clarity Clear Urine pH 7.0 (<5.0-8.0) Urine Specific [place] 1.025 (1.000-1.030) Urine Protein Trace mg/dL (NEG-TRACE) Urine Glucose (UA) Negative mg/dL (NEG) Urine Ketones (Stick) Negative mg/dL (NEG) Urine Blood Negative (NEG) Urine Nitrite Negative (NEG) Urine Bilirubin Negative (NEG) Urine Urobilinogen Dipstick 0.2 mg/dL (0.2 mg/dL) Urine Leukocyte Esterase Small (NEG) Urine RBC 3-5 /HPF (0-2) Urine WBC 20-40 /HPF (0-4) Urine Squamous Epithelial Cells Many /LPF Urine Bacteria Few /HPF (0-FEW) Urine Mucus Slight /LPF Bedside Urine HCG, Qualitative Hcg negative (Negative) White Blood Count 14.8 x10^3/uL (4.0-11.0) Red Blood Count 5.17 x10^6/uL (3.50-5.40) Hemoglobin 11.4 g/dL (12.0-15.5) Hematocrit 35.2 % (36.0-47.0) Mean Corpuscular Volume 68 fL (79-100) Mean Corpuscular Hemoglobin 22 pg (25-35) Mean Corpuscular Hemoglobin Concent 32 g/dL (31-37) Red Cell Distribution Width 16.0 % (11.5-14.5) Platelet Count 305 x10^3/uL (140-400) Neutrophils (%) (Auto) 79 % (31-73) Lymphocytes (%) (Auto) 13 % (24-48) Monocytes (%) (Auto) 6 % (0-9) Eosinophils (%) (Auto) 1 % (0-3) Basophils (%) (Auto) 1 % (0-3) Neutrophils # (Auto) 11.8 x10^3/uL (1.8-7.7) Lymphocytes # (Auto) 1.9 x10^3/uL (1.0-4.8) Monocytes # (Auto) 0.8 x10^3/uL (0.0-1.1) Eosinophils # (Auto) 0.2 x10^3/uL (0.0-0.7) Basophils # (Auto) 0.1 x10^3/uL (0.0-0.2) Platelet Estimate Adequate (ADEQUATE) Polychromasia Present Hypochromasia Slight Anisocytosis Slight Microcytosis Marked Sodium Level 138 mmol/L (136-145) Potassium Level 3.6 mmol/L (3.5-5.1) Chloride Level 102 mmol/L (98-107) Carbon Dioxide Level 26 mmol/L (21-32) Anion Gap 10 (6-14) Blood Urea Nitrogen 10 mg/dL (7-20) Creatinine 0.8 mg/dL (0.6-1.0) Estimated GFR (Cockcroft-Gault) 85.4 BUN/Creatinine Ratio 13 (6-20) Glucose Level 161 mg/dL (70-99) Lactic Acid Level 2.1 mmol/L (0.4-2.0) Calcium Level 8.7 mg/dL (8.5-10.1) Total Bilirubin 0.3 mg/dL (0.2-1.0) Aspartate Amino Transf (AST/SGOT) 50 U/L (15-37) Alanine Aminotransferase (ALT/SGPT) 65 U/L (14-59) Alkaline Phosphatase 136 U/L (46-116) Total Protein 8.1 g/dL (6.4-8.2) Albumin 3.3 g/dL (3.4-5.0) Albumin/Globulin Ratio 0.7 (1.0-1.7) Lipase 118 U/L (73-393) SARS-CoV-2 Antigen (Rapid) Negative (NEGATIVE) Test 08/02/21 14:10 08/02/21 14:51 08/03/21 05:40 Lactic Acid Level 1.4 mmol/L (0.4-2.0) Prothrombin Time 13.7 SEC (11.7-14.0) Prothromb Time International Ratio 1.1 (0.8-1.1) Activated Partial Thromboplast Time 24 SEC (24-38) Fibrinogen 858 mg/dL (200-440) D-Dimer (Gaby) 0.54 ug/mlFEU (0.00-0.50) White Blood Count 7.4 x10^3/uL (4.0-11.0) Red Blood Count 4.44 x10^6/uL (3.50-5.40) Hemoglobin 10.3 g/dL (12.0-15.5) Hematocrit 30.9 % (36.0-47.0) Mean Corpuscular Volume 70 fL (79-100) Mean Corpuscular Hemoglobin 23 pg (25-35) Mean Corpuscular Hemoglobin Concent 33 g/dL (31-37) Red Cell Distribution Width 15.7 % (11.5-14.5) Platelet Count 245 x10^3/uL (140-400) Neutrophils (%) (Auto) 64 % (31-73) Lymphocytes (%) (Auto) 26 % (24-48) Monocytes (%) (Auto) 7 % (0-9) Eosinophils (%) (Auto) 3 % (0-3) Basophils (%) (Auto) 0 % (0-3) Neutrophils # (Auto) 4.8 x10^3/uL (1.8-7.7) Lymphocytes # (Auto) 1.9 x10^3/uL (1.0-4.8) Monocytes # (Auto) 0.6 x10^3/uL (0.0-1.1) Eosinophils # (Auto) 0.2 x10^3/uL (0.0-0.7) Basophils # (Auto) 0.0 x10^3/uL (0.0-0.2) Sodium Level 140 mmol/L (136-145) Potassium Level 3.6 mmol/L (3.5-5.1) Chloride Level 106 mmol/L (98-107) Carbon Dioxide Level 28 mmol/L (21-32) Anion Gap 6 (6-14) Blood Urea Nitrogen 8 mg/dL (7-20) Creatinine 0.7 mg/dL (0.6-1.0) Estimated GFR (Cockcroft-Gault) 99.6 BUN/Creatinine Ratio 11 (6-20) Glucose Level 131 mg/dL (70-99) Calcium Level 8.6 mg/dL (8.5-10.1) Total Bilirubin 0.5 mg/dL (0.2-1.0) Aspartate Amino Transf (AST/SGOT) 33 U/L (15-37) Alanine Aminotransferase (ALT/SGPT) 48 U/L (14-59) Alkaline Phosphatase 107 U/L (46-116) Total Protein 6.9 g/dL (6.4-8.2) Albumin 2.7 g/dL (3.4-5.0) Albumin/Globulin Ratio 0.6 (1.0-1.7) Assessment and Plan Assessmemt and Plan Problems Medical Problems: (1) Intractable abdominal pain Status: Acute (2) Pyelonephritis Status: Acute (3) SIRS (systemic inflammatory response syndrome) Status: Acute Comment Review of Relevant I have reviewed the following items carmelina (where applicable) has been applied. Medications: Current Medications Medications (Trade) Dose Ordered Sig/Freddy Route PRN Reason Start Time Stop Time Status Last Admin Dose Admin Sodium Chloride 1,000 ml @ 1,000 mls/hr Q1H IV 08/02/21 10:30 08/02/21 11:29 DC 08/02/21 11:04 Fentanyl Citrate (Fentanyl 2ml Vial) 50 mcg 1X ONCE IVP 08/02/21 10:30 08/02/21 10:35 DC 08/02/21 11:04 Ondansetron HCl (Zofran) 4 mg 1X ONCE IVP 08/02/21 10:30 08/02/21 10:35 DC 08/02/21 11:04 Iohexol (Omnipaque 300 Mg/ml) 75 ml 1X ONCE IV 08/02/21 10:45 08/02/21 10:46 DC 08/02/21 10:45 Acetaminophen (Tylenol) 1,000 mg 1X ONCE PO 08/02/21 10:45 08/02/21 10:46 DC 08/02/21 11:05 Piperacillin Sod/ Tazobactam Sod 3.375 gm/Sodium Chloride 50 ml @ 100 mls/hr 1X ONCE IV 08/02/21 12:45 08/02/21 13:14 DC 08/02/21 12:30 Fentanyl Citrate (Fentanyl 2ml Vial) 50 mcg 1X ONCE IVP 08/02/21 12:45 08/02/21 12:50 DC 08/02/21 13:30 Sodium Chloride 1,000 ml @ 1,000 mls/hr 1X ONCE IV 08/02/21 13:00 08/02/21 23:25 DC 08/02/21 12:30 Ketorolac Tromethamine (Toradol 30mg Vial) 30 mg 1X ONCE IVP 08/02/21 13:30 08/02/21 13:31 DC 08/02/21 14:10 Fentanyl Citrate (Fentanyl 2ml Vial) 50 mcg PRN Q1HR PRN IVP PAIN 08/02/21 13:45 08/03/21 13:44 08/02/21 16:18 Acetaminophen (Tylenol) 650 mg PRN Q4HRS PRN PO FEVER > 100.3'F 08/02/21 13:45 08/03/21 13:44 08/03/21 00:30 Sodium Chloride 1,000 ml @ 100 mls/hr 1X ONCE IV 08/02/21 14:15 08/02/21 23:25 DC 08/02/21 14:43 Ondansetron HCl (Zofran) 4 mg PRN Q4HRS PRN IV NAUSEA/VOMITING 08/02/21 14:15 08/02/21 17:52 Piperacillin Sod/ Tazobactam Sod 3.375 gm/Sodium Chloride 50 ml @ 100 mls/hr Q6HRS IV 08/02/21 18:00 08/03/21 05:55 Justifications for Admission Other Justification abd pain, sirs VERNON BROWN MD Aug 03, 2021 08:15
--- NOTE | 2021-08-03 10:20 | NUR ---
SW following. Discussed with RN, pt from home, room air, full liquid diet, independent, rapid COVID-19 negative. Surgery following. RN advised no SW needs at this time. SW will continue to follow.
[2021-08-03 10:53] VITALS: BP 160/93
[2021-08-03] MEDS ORDERED: KETOROLAC 30 MG/ML VIAL. IVP PRN (12:00)
[2021-08-03] MEDS ORDERED: FERROUS SULFATE 325 MG TABLET. PO SCH (12:00)
[2021-08-03] MEDS ORDERED: CIPR250T PO (12:01)
[2021-08-03] MEDS ORDERED: CIPROFLOXACIN HCL 250 MG TABLET. PO ONE (13:00)
[2021-08-03 15:00] VITALS: BP 149/80
--- NOTE | 2021-08-03 15:37 | PDOC3 ---
Discharge Summary Visit Information Date of Admission: Aug 02, 2021 Date of Discharge: Aug 03, 2021 Admitting Diagnosis: Intractable abdominal pain Final Diagnosis Problems Medical Problems: (1) Intractable abdominal pain Status: Acute (2) Pyelonephritis Status: Acute (3) SIRS (systemic inflammatory response syndrome) Status: Acute Brief Hospital Course Allergies Allergies Coded Allergies Type Severity Reaction Last Updated Verified No Known Drug Allergies 08/02/21 No Vital Signs Vital Signs Date Time Temp Pulse Resp B/P (MAP) Pulse Ox O2 Delivery O2 Flow Rate FiO2 08/03/21 10:53 98.5 75 18 160/93 (115) 97 98.5 08/03/21 07:56 Room Air Lab Results Laboratory Tests Test 08/02/21 10:20 08/02/21 10:36 08/02/21 10:39 08/02/21 12:24 Urine Collection Type Void Urine Color Yellow Urine Clarity Clear Urine pH 7.0 (<5.0-8.0) Urine Specific [place] 1.025 (1.000-1.030) Urine Protein Trace mg/dL (NEG-TRACE) Urine Glucose (UA) Negative mg/dL (NEG) Urine Ketones (Stick) Negative mg/dL (NEG) Urine Blood Negative (NEG) Urine Nitrite Negative (NEG) Urine Bilirubin Negative (NEG) Urine Urobilinogen Dipstick 0.2 mg/dL (0.2 mg/dL) Urine Leukocyte Esterase Small (NEG) Urine RBC 3-5 /HPF (0-2) Urine WBC 20-40 /HPF (0-4) Urine Squamous Epithelial Cells Many /LPF Urine Bacteria Few /HPF (0-FEW) Urine Mucus Slight /LPF Bedside Urine HCG, Qualitative Hcg negative (Negative) White Blood Count 14.8 x10^3/uL (4.0-11.0) Red Blood Count 5.17 x10^6/uL (3.50-5.40) Hemoglobin 11.4 g/dL (12.0-15.5) Hematocrit 35.2 % (36.0-47.0) Mean Corpuscular Volume 68 fL (79-100) Mean Corpuscular Hemoglobin 22 pg (25-35) Mean Corpuscular Hemoglobin Concent 32 g/dL (31-37) Red Cell Distribution Width 16.0 % (11.5-14.5) Platelet Count 305 x10^3/uL (140-400) Neutrophils (%) (Auto) 79 % (31-73) Lymphocytes (%) (Auto) 13 % (24-48) Monocytes (%) (Auto) 6 % (0-9) Eosinophils (%) (Auto) 1 % (0-3) Basophils (%) (Auto) 1 % (0-3) Neutrophils # (Auto) 11.8 x10^3/uL (1.8-7.7) Lymphocytes # (Auto) 1.9 x10^3/uL (1.0-4.8) Monocytes # (Auto) 0.8 x10^3/uL (0.0-1.1) Eosinophils # (Auto) 0.2 x10^3/uL (0.0-0.7) Basophils # (Auto) 0.1 x10^3/uL (0.0-0.2) Platelet Estimate Adequate (ADEQUATE) Polychromasia Present Hypochromasia Slight Anisocytosis Slight Microcytosis Marked Sodium Level 138 mmol/L (136-145) Potassium Level 3.6 mmol/L (3.5-5.1) Chloride Level 102 mmol/L (98-107) Carbon Dioxide Level 26 mmol/L (21-32) Anion Gap 10 (6-14) Blood Urea Nitrogen 10 mg/dL (7-20) Creatinine 0.8 mg/dL (0.6-1.0) Estimated GFR (Cockcroft-Gault) 85.4 BUN/Creatinine Ratio 13 (6-20) Glucose Level 161 mg/dL (70-99) Lactic Acid Level 2.1 mmol/L (0.4-2.0) Calcium Level 8.7 mg/dL (8.5-10.1) Total Bilirubin 0.3 mg/dL (0.2-1.0) Aspartate Amino Transf (AST/SGOT) 50 U/L (15-37) Alanine Aminotransferase (ALT/SGPT) 65 U/L (14-59) Alkaline Phosphatase 136 U/L (46-116) Total Protein 8.1 g/dL (6.4-8.2) Albumin 3.3 g/dL (3.4-5.0) Albumin/Globulin Ratio 0.7 (1.0-1.7) Lipase 118 U/L (73-393) SARS-CoV-2 RNA (MOHSEN) Invalid (Negative) SARS-CoV-2 Antigen (Rapid) Negative (NEGATIVE) Test 08/02/21 14:10 08/02/21 14:51 08/03/21 05:40 Lactic Acid Level 1.4 mmol/L (0.4-2.0) Prothrombin Time 13.7 SEC (11.7-14.0) Prothromb Time International Ratio 1.1 (0.8-1.1) Activated Partial Thromboplast Time 24 SEC (24-38) Fibrinogen 858 mg/dL (200-440) D-Dimer (Gaby) 0.54 ug/mlFEU (0.00-0.50) White Blood Count 7.4 x10^3/uL (4.0-11.0) Red Blood Count 4.44 x10^6/uL (3.50-5.40) Hemoglobin 10.3 g/dL (12.0-15.5) Hematocrit 30.9 % (36.0-47.0) Mean Corpuscular Volume 70 fL (79-100) Mean Corpuscular Hemoglobin 23 pg (25-35) Mean Corpuscular Hemoglobin Concent 33 g/dL (31-37) Red Cell Distribution Width 15.7 % (11.5-14.5) Platelet Count 245 x10^3/uL (140-400) Neutrophils (%) (Auto) 64 % (31-73) Lymphocytes (%) (Auto) 26 % (24-48) Monocytes (%) (Auto) 7 % (0-9) Eosinophils (%) (Auto) 3 % (0-3) Basophils (%) (Auto) 0 % (0-3) Neutrophils # (Auto) 4.8 x10^3/uL (1.8-7.7) Lymphocytes # (Auto) 1.9 x10^3/uL (1.0-4.8) Monocytes # (Auto) 0.6 x10^3/uL (0.0-1.1) Eosinophils # (Auto) 0.2 x10^3/uL (0.0-0.7) Basophils # (Auto) 0.0 x10^3/uL (0.0-0.2) Sodium Level 140 mmol/L (136-145) Potassium Level 3.6 mmol/L (3.5-5.1) Chloride Level 106 mmol/L (98-107) Carbon Dioxide Level 28 mmol/L (21-32) Anion Gap 6 (6-14) Blood Urea Nitrogen 8 mg/dL (7-20) Creatinine 0.7 mg/dL (0.6-1.0) Estimated GFR (Cockcroft-Gault) 99.6 BUN/Creatinine Ratio 11 (6-20) Glucose Level 131 mg/dL (70-99) Calcium Level 8.6 mg/dL (8.5-10.1) Iron Level 40 ug/dL (50-170) Total Iron Binding Capacity 382 ug/dL (250-450) Iron Saturation 10 % (15-34) Total Bilirubin 0.5 mg/dL (0.2-1.0) Aspartate Amino Transf (AST/SGOT) 33 U/L (15-37) Alanine Aminotransferase (ALT/SGPT) 48 U/L (14-59) Alkaline Phosphatase 107 U/L (46-116) Total Protein 6.9 g/dL (6.4-8.2) Albumin 2.7 g/dL (3.4-5.0) Albumin/Globulin Ratio 0.6 (1.0-1.7) Laboratory Tests Test 08/03/21 05:40 White Blood Count 7.4 x10^3/uL (4.0-11.0) Red Blood Count 4.44 x10^6/uL (3.50-5.40) Hemoglobin 10.3 g/dL (12.0-15.5) Hematocrit 30.9 % (36.0-47.0) Mean Corpuscular Volume 70 fL (79-100) Mean Corpuscular Hemoglobin 23 pg (25-35) Mean Corpuscular Hemoglobin Concent 33 g/dL (31-37) Red Cell Distribution Width 15.7 % (11.5-14.5) Platelet Count 245 x10^3/uL (140-400) Neutrophils (%) (Auto) 64 % (31-73) Lymphocytes (%) (Auto) 26 % (24-48) Monocytes (%) (Auto) 7 % (0-9) Eosinophils (%) (Auto) 3 % (0-3) Basophils (%) (Auto) 0 % (0-3) Neutrophils # (Auto) 4.8 x10^3/uL (1.8-7.7) Lymphocytes # (Auto) 1.9 x10^3/uL (1.0-4.8) Monocytes # (Auto) 0.6 x10^3/uL (0.0-1.1) Eosinophils # (Auto) 0.2 x10^3/uL (0.0-0.7) Basophils # (Auto) 0.0 x10^3/uL (0.0-0.2) Sodium Level 140 mmol/L (136-145) Potassium Level 3.6 mmol/L (3.5-5.1) Chloride Level 106 mmol/L (98-107) Carbon Dioxide Level 28 mmol/L (21-32) Anion Gap 6 (6-14) Blood Urea Nitrogen 8 mg/dL (7-20) Creatinine 0.7 mg/dL (0.6-1.0) Estimated GFR (Cockcroft-Gault) 99.6 BUN/Creatinine Ratio 11 (6-20) Glucose Level 131 mg/dL (70-99) Calcium Level 8.6 mg/dL (8.5-10.1) Iron Level 40 ug/dL (50-170) Total Iron Binding Capacity 382 ug/dL (250-450) Iron Saturation 10 % (15-34) Total Bilirubin 0.5 mg/dL (0.2-1.0) Aspartate Amino Transf (AST/SGOT) 33 U/L (15-37) Alanine Aminotransferase (ALT/SGPT) 48 U/L (14-59) Alkaline Phosphatase 107 U/L (46-116) Total Protein 6.9 g/dL (6.4-8.2) Albumin 2.7 g/dL (3.4-5.0) Albumin/Globulin Ratio 0.6 (1.0-1.7) Brief Hospital Course Ms Lyn is a 26 year old female w/ PMHx asthma, migraines, appendectomy, left oophorectomy, morbid obesity who presented to ED c/o intractable right lower quadrant pain she compares to labor pains. Has associated fever and tachycardia. rating her pain a [address] abdomen pelvis with enlarged appendiceal stump. No obstructing urinary calculus noted. UA consistent with UTI, WBC 16. DOSED WITH ZOSYN X 1 IN ER , surgery consulted wbc 14.8 lactic acid 2.1 08/03: WBC 7.4, LFTs normalized, lactate down to 1.4, rapid COVID-19 negative. Pain is much better controlled. Urine culture with no growth. discussed possibly near appendix colitis. No family history of crohns or UC. She is anxious to advance diet and go home as she has a 1 year old at home Problem list: RLQ, suprapubic pain, ABNORMAL ct // initial CT diagnosis is unclear clinically possibly with appendiceal stump inflammation, colitis, improved with antibiotics Sepsis - with tachycardia, leukocytosis, abdominal infection Intractable abdominal pain Morbid obesity ?Pyelonephritis Blood culture positive -GPC in 1 of 4 bottles given the she was no longer septic on Zosyn this is likely a coag negative staph that is a contaminant. Greater than 30 minutes spent on dc home with self care on cipro 3 days Discharge Information Condition at Discharge: Improved Follow Up: Weeks (1) Disposition/Orders: D/C to Home Scheduled Ciprofloxacin Hcl (Ciprofloxacin Hcl) 250 Mg Tablet, 1 TAB PO BID for colitis/uti for 3 Days, #6 Prescribed by: VERNON BROWN MD on 08/03/21 1201 Scheduled PRN Albuterol Sulfate (Proair Hfa Inhaler) 8.5 Gm Hfa.aer.ad, 2 PUFF IH PRN Q4-6HRS PRN for wheezing for 21 Days, #1 Ref 0 (Reported) Entered as Reported by: KATHI HEWITT on 08/02/211711 Last Action: New Order on 08/02/211711 by KATHI HEWITT Justicifation of Admission Dx: Justifications for Admission: Justification of Admission Dx: Yes VERNON BROWN MD Aug 03, 2021 15:36
--- NOTE | 2021-08-03 16:30 | NUR ---
Discharge Note: [facility] Discharge instructions and discharge home medications reviewed with Patient and a copy given. All questions have been answered and understanding verbalized. The following instructions and handouts were given: discharge instructions, new prescriptions, education and follow up recommendations. Discontinued lines and drains: Peripheral IV discontinued intact. Patient discharged to Home or Self Care with Family Member via Ambulated off unit by JOY LOADER.
[2021-08-03] MEDS ORDERED: LACTOBACILLUS RHAMNOSUS GG 1 CAPSULE. PO SCH (21:00)
== END 2021-08-03 16:31 | disposition home or self-care (01) ==
LOC: ER 10:17 → 5 NORTH 13:28
PROVIDERS: ADMIT Family Medicine; ATTEND Family Medicine
DX: N12 Tubulo-interstitial nephritis, not specified as acute or chronic (principal); Z20.822 Contact with and (suspected) exposure to COVID-19; R65.10 Systemic inflammatory response syndrome (SIRS) of non-infectious origin without acute organ dysfunction; J45.909 Unspecified asthma, uncomplicated; E66.01 Morbid (severe) obesity due to excess calories; R00.0 Tachycardia, unspecified; G43.909 Migraine, unspecified, not intractable, without status migrainosus; N83.202 Unspecified ovarian cyst, left side; N88.8 Other specified noninflammatory disorders of cervix uteri; D72.829 Elevated white blood cell count, unspecified; Z90.49 Acquired absence of other specified parts of digestive tract; Z90.721 Acquired absence of ovaries, unilateral; Z82.49 Family history of ischemic heart disease and other diseases of the circulatory system; Z98.890 Other specified postprocedural states
CPT/HCPCS: 36415; 71045; 74177; 76830; 76856; 80053; 81001; 81025; 83540; 83550; 83605; 83690; 85025; 85379; 85384; 85610; 85730; 87040; 87077; 87086; 87205; 87426; 96361; 96365; 96366; 96372; 96375; 96376; 99285; G0378; J1650; J1885; J2405; J2543; J3010; J7030; Q9967; U0003; U0005; G0379